=== PATIENT | female | born 1970 | race Caucasian/White ===

== ENCOUNTER 2020-07-24 08:36 | Outpatient (CLI) | payer OTHER, SELFPAY ==
--- NOTE | ~2020-07-24 | MM_ITS ---
EXAMINATION: MM screening nikolas BI w mary HISTORY: Screening mammogram TECHNIQUE: Craniocaudal and mediolateral oblique 3-D tomosynthesis images were obtained and synthetic 2-D images were generated. CAD analysis was submitted and interpreted. COMPARISON: No prior mammogram is available for comparison at this institution. BREAST PARENCHYMAL COMPOSITION: The breasts are heterogeneously dense, which may obscure small masses . FINDINGS: Bilateral microcalcifications are noted. Magnification views are required for more definiti ve evaluation. IMPRESSION: 1. Bilateral microcalcifications 2. Bilateral diagnostic mammography with magnification views is recommended. BI-RADS Category 0: Incomplete: Needs additional imaging evaluation. Reviewed, dictated and finalized at location A. HER ASSISTANT
== END 2020-07-24 08:37 | disposition home or self-care (01) ==
LOC: ANHIMG 08:45
PROVIDERS: PCP Internal Medicine
DX: Z12.31 Encounter for screening mammogram for malignant neoplasm of breast (principal); R92.8 Other abnormal and inconclusive findings on diagnostic imaging of breast
CPT/HCPCS: 77063; 77067

== ENCOUNTER 2020-08-21 13:43 | Outpatient (CLI) | payer OTHER, SELFPAY ==
--- NOTE | ~2020-08-21 | MM_ITS ---
EXAMINATION: MM diagnostic mammo BI HISTORY: Bilateral microcalcifications TECHNIQUE: Magnification views of both breasts were performed. Bilateral ML Tomosynthesis views and s ynthetic 2-D images were generated. CAD analysis was submitted and interpreted. COMPARISON: 07/24/2020 bilateral digital screening mammogram FINDINGS: Scattered bilateral benign predominantly punctate microcalcifications are noted. No maligna nt calcification is evident. IMPRESSION: 1. No mammographic evidence of malignancy 2. Routine annual mammographic screening is recommended. BI-RADS Category 2: Benign finding(s). Reviewed, dictated and finalized at location A. TOLOGY NURSE EDUCATOR
== END 2020-08-21 13:44 | disposition home or self-care (01) ==
PROVIDERS: PCP Internal Medicine
DX: R92.1 Mammographic calcification found on diagnostic imaging of breast (principal)
CPT/HCPCS: 77066

== ENCOUNTER 2021-09-11 08:02 | Outpatient (CLI) | payer OTHER, SELFPAY ==
--- NOTE | ~2021-09-11 | MM_ITS ---
EXAMINATION: MM screening nikolas BI w mary HISTORY: Screening TECHNIQUE: Craniocaudal and mediolateral oblique 3-D tomosynthesis images were obtained and synthetic 2-D images were generated. CAD analysis was submitted and interpreted. COMPARISON: No prior mammogram is available for comparison at this institution. BREAST PARENCHYMAL COMPOSITION: The breasts are heterogeneously dense, which may obscure small masses . FINDINGS: There is no evidence of suspicious mass, calcification, or architectural distortion to sugg est malignancy in either breast. There has been no suspicious interval change. IMPRESSION: 1. No mammographic evidence of malignancy. 2. Recommend routine screening mammography in one year. BI-RADS Category 1: Negative Reviewed, dictated and finalized at location A. STOCK NUTRITIONIST
== END 2021-09-11 08:03 | disposition home or self-care (01) ==
LOC: ANHIMG 08:04
PROVIDERS: PCP Internal Medicine; Visit Provider Obstetrics & Gynecology
DX: Z12.31 Encounter for screening mammogram for malignant neoplasm of breast (principal)
CPT/HCPCS: 77063; 77067

== ENCOUNTER 2022-10-30 16:16 | Outpatient (CLI) | payer BC, SELFPAY ==
--- NOTE | ~2022-10-30 | MM_ITS ---
EXAMINATION: MM screening nikolas BI w mary HISTORY: . TECHNIQUE: Craniocaudal and mediolateral oblique 3-D tomosynthesis images were obtained and synthetic 2-D images were generated. CAD analysis was submitted and interpreted. COMPARISON: No prior mammogram is available for comparison at this institution. BREAST PARENCHYMAL COMPOSITION: The breasts are heterogeneously dense, which may obscure small masses . FINDINGS: Stable fibroglandular asymmetry. There is no evidence of suspicious mass, calcification, or architectural distortion to suggest malignancy in either breast. There has been no suspicious interv al change. IMPRESSION: 1. Bilateral fibroglandular asymmetry and heterogeneously dense stroma No mammographic evidence of ma lignancy. 2. Recommend routine screening mammography in one year. BI-RADS Category 2: Benign finding(s). Reviewed, dictated and finalized at location A. DYNAMICS PROFESSOR IMPRESSION: 1. Bilateral fibroglandular asymmetry and heterogeneously dense stroma No mammo graphic evidence of malignancy. 2. Recommend routine screening mammography in one year. BI-RADS Category 2: Benign finding(s).
== END 2022-10-30 16:17 | disposition home or self-care (01) ==
LOC: ANHIMG 16:19
PROVIDERS: PCP Internal Medicine; Visit Provider Obstetrics & Gynecology
DX: Z12.31 Encounter for screening mammogram for malignant neoplasm of breast (principal)
CPT/HCPCS: 77063; 77067

== ENCOUNTER 2023-03-20 18:50 | Emergency (ER) | payer BC, SELFPAY ==
--- NOTE | 2023-03-20 18:51 | ED.EYEPROB ---
HPI - Eye Problem General Chief complaint: Eye Problems Stated complaint: Left Eye Irritation Time Seen by Provider: 03/20/23 18:51 Source: patient Mode of arrival: ambulatory Limitations: no limitations History of Present Illness HPI Narrative: Cyndee is a 52-year-old female patient presenting to clinic today with complaints of left eye irritation x2 days. She reports she thinks she got bit by an insect. Developed left upper eyelid swelling and now she has got redness and streaking around the eye. States that it is itchy and tender to palpation. Mild erythema, denies any fever or chills. History of penicillin allergies however she is able to take cefdinir/Keflex Related Data Home Medications Medication Instructions Recorded Confirmed atorvastatin 80 mg tablet mg 03/20/23 montelukast 10 mg tablet mg 03/20/23 progesterone micronized 100 mg mg 03/20/23 capsule venlafaxine 75 mg capsule,extended mg PO 03/20/23 release 24 hr Allergies Allergy/AdvReac Type Severity Reaction Status Date / Time amoxicillin Allergy Unknown Other Verified 03/20/23 18:53 codeine Allergy Unknown Other Verified 03/20/23 18:53 clavulanic acid Allergy Other Verified 03/20/23 19:05 [From Augmentin] Review of Systems Review of Systems: Pertinent positives per HPI. Patient denies any fever, chills, headache, visual changes, dizziness, cough, runny nose, sore throat, shortness of breath, chest pain, palpitations, nausea, vomiting, diarrhea, constipation, abdominal pain, or any urinary issues. [facility] Family History Family History Other Family history of malignant neoplasm of breast Social History Social History Smoking status: Never smoker Alcohol intake: current Comments At the time of my signature, I reviewed and agree with the nursing past medical, surgical, social, and family history. There is no relevant family history pertinent to the patient complaint. Exam Narrative: General: Well-developed, well nourished, in no apparent distress Head: Normocephalic, atraumatic Eyes: Pupils equally round and reactive to light bilaterally, EOM intact, sclera and conjunctive clear, no discharge, left upper eyelid swollen, red,itchy, with mild erythema and tenderness-redness streaking down the lateral left face Ears: TMs intact and clear, ear canals clear, no drainage, grossly hearing normal. Nose: Nares patent, no discharge, no inflammation, no sinus tenderness. Mouth: Oropharynx without lesions or masses, good dentition, MMM. Neck: Supple, trachea midline, no enlargement of anterior or posterior cervical nodes, no thyroid masses or goiter palpable. Cardio: Regular rate and rhythm, s1 and s2 normal, no murmur appreciated. Resp: Clear to auscultation bilaterally anteriorly and posteriorly, no rhonchi, rales, wheezing or rubs Course Course Emergency Course: Portions of this record may have been created with voice recognition software. Level of Care: Express Care Visit Vital Signs Vital signs: Vital signs reviewed MDM - Eye Problem MDM Narrative Medical decision making narrative: At the time of visit patient is resting comfortably on exam table. I suspect patient has an insect sting that is causing some periorbital cellulitis/your allergic reaction. Will send in prescription for prednisone and Keflex. Supportive measures were discussed with the patient she voiced understanding discharge instructions agrees to treatment plan. Differential Diagnosis Differential diagnosis: Likely corneal abrasion, conjunctivitis, acute iritis, periorbital cellulitis, corneal ulcer (Insect bite, allergic reaction) and ruptured globe Discharge Plan Discharge Clinical Impression: Allergic to insect bites and stings Insect bite Qualifiers: Encounter type: initial encounter Site of insect bite: head Site
[2023-03-20 19:03] VITALS: BP 120/74; PULSE 86; RESP 16; TEMP 37.1; O2SAT 100
== END 2023-03-20 19:12 | disposition home or self-care (01) ==
PROVIDERS: Emergency Provider Nurse Practitioner Family; PCP Internal Medicine
DX: S00.262A Insect bite (nonvenomous) of left eyelid and periocular area, initial encounter (principal); W57.XXXA Bitten or stung by nonvenomous insect and other nonvenomous arthropods, initial encounter; H05.012 Cellulitis of left orbit
CPT/HCPCS: 99213; G0463

== ENCOUNTER 2024-02-11 16:20 | Outpatient (CLI) | payer OTHER, SELFPAY ==
--- NOTE | ~2024-02-11 | MM_ITS ---
EXAMINATION: MM screening nikolas BI w mary HISTORY: Screening TECHNIQUE: Craniocaudal and mediolateral oblique 3-D tomosynthesis images were obtained and synthetic 2-D images were generated. CAD analysis was submitted and interpreted. COMPARISON: Comparison to multiple prior studies sequentially, with oldest reviewed study dated 09/2018. BREAST PARENCHYMAL COMPOSITION: The breasts are heterogeneously dense, which may obscure small masses . FINDINGS: There is a new focal asymmetry laterally in the left breast on CC view only. The right raúl st is stable without evidence for malignancy. IMPRESSION: 1. No focal left breast asymmetry laterally on CC view. 2. Additional mammographic views and possible breast ultrasound are recommended. BI-RADS Category 0: Incomplete: Needs additional imaging evaluation. Reviewed, dictated and finalized at location B. IMPRESSION: 1. No focal left breast asymmetry laterally on CC view. 2. Additional mammographic views and possible breast ultrasound are recommended . BI-RADS Category 0: Incomplete: Needs additional imaging evaluation.
== END 2024-02-11 16:21 | disposition home or self-care (01) ==
PROVIDERS: PCP Internal Medicine; Visit Provider Obstetrics & Gynecology
DX: Z12.31 Encounter for screening mammogram for malignant neoplasm of breast (principal); R92.8 Other abnormal and inconclusive findings on diagnostic imaging of breast
CPT/HCPCS: 77063; 77067

== ENCOUNTER 2024-03-03 10:42 | Outpatient (CLI) | payer OTHER, SELFPAY ==
--- NOTE | ~2024-03-03 | MM_ITS ---
EXAMINATION: MM diagnostic nikolas LT w mary HISTORY: Focal asymmetry left breast TECHNIQUE: Additional 3-D tomosynthesis spot compression images of the left breast were performed and synthetic 2-D images were generated. CAD analysis was submitted and interpreted. COMPARISON: 02/11/2024, 10/30/2022, 09/11/2021 BREAST PARENCHYMAL COMPOSITION:Dense: The breasts are heterogeneously dense, which may obscure small masses. FINDINGS: The focal asymmetry effaces with spot compression. No suspicious mass lesion or distortion seen. No suspicious microcalcification. IMPRESSION: No mammographic evidence for malignancy. BI-RADS Category 1: Negative Reviewed, dictated and finalized at location .
== END 2024-03-03 10:43 | disposition home or self-care (01) ==
LOC: ANHIMG 10:45
PROVIDERS: PCP Internal Medicine; Visit Provider Obstetrics & Gynecology
DX: R92.8 Other abnormal and inconclusive findings on diagnostic imaging of breast (principal)
CPT/HCPCS: 77061; 77065; G0279

== ENCOUNTER 2025-07-12 15:40 | Outpatient (CLI) | payer OTHER, SELFPAY ==
--- OUTSIDE RECORDS SUMMARY | 2024-02-14 15:30 | XMS_ITS ---
Author Organization [facility] [employer] [place] ([address]) Address [address] [place] [address] Care Team Providers Care Lockstitch Topstitcher Name Role Phone Nickie Rivas Primary Care Provider Unavaila Liliane Rosales Unavailable [phone] [employer], Provider Unavailable Unavailab le Allergies Allergen (clinical drug ingredient) Drug/Non Drug Allergy documented on EMR Reaction Allergy Type Onset Date Status BIAXIN (uncoded) diarrhea Allergy Act patricio amoxicillin / clavulanate Augmentin stomach upset Drug Allergy Active doxycycline Doxycycline rash Drug Allergy Act patricio Tussin Cough confussion Drug Allergy Act patricio codeine Codeine vomiting Drug Allergy Active REASON FOR VISIT [facility] To [facility] Conversion Encounter Medications Medication SIG (Take, Route, Frequency, Duration) Notes Start Date End Date Status Singulair 10 MG 1 tab(s) orally once a day (in the evening); Duration: 90 days Active Azelastine HCl 0.15 % 2 spray(s) intranasally 2 times a day; Duration: 90 days Active SIT (TRADITIONAL) VARIABLE PER SCHEDULE SC PER SCHEDULE; Duration: TO BE DETERMINED *Please review for potential replacement for e-prescription and drug interaction check* Active busPIRone HCl 7.5 MG 1 tab(s) orally 2 times a day; Duration: 30 day(s) 09/26/2021 Active Singulair 10 MG 1 tab(s) orally once a day (in the evening); Duration: 90 days Active NASAL WASHES N/A DIRECTED INTRANASALLY NEEDED *Please review for potential replacement for e-prescription and drug interaction check* Active ZyrTEC Allergy 10 MG 1 tab(s) orally once a day Active Lenore Allergy 180 MG 1 tab(s) orally once a day Active Estradiol 0.05 MG/24HR 1 PATCH applied topically 2 times a week; Duration: 30 day(s) Active Effexor XR 75 MG 1 cap(s) orally once a day; Duration: 30 day(s) 09/26/2021 Active busPIRone HCl 15 MG 1 tab(s) orally 2 times a day; Duration: 30 day(s) Active Effexor XR 75 MG 1 cap(s) orally once a day; Duration: 30 day(s) Active PROAIR HFA CFC FREE 90 MCG/INH 2 PUFF(S) INHALED 4 TIMES A DAY; Duration: 90 DAYS *Please review for potential replacement for e-prescription and drug interaction check* Active Symbicort 80-4.5 MCG/ACT 2 puff(s) inhaled 2 times a day; Duration: 30 day(s) Active EpiPen 2-Speedy 0.3 MG/0.3ML 0.3 mg intramuscularly once Active Pataday 0.2 % 1 gtt in each affect ed eye once a day; Duration: 90 days Active Atorvastatin Calcium 80 MG 1 tab(s) orally once a day; Duration: 30 day(s) Active Estradiol 0.05 MG/24 HOURS TWICE WEEKLY 1 PATCH TRANSDERMALLY 2 TIMES A WEEK; Duration: 30 DAY(S) *Please review and pick correct strength-formulat ion from NAVX options. If intended option is not shown, discontinue and re-order from Quick Search* Active Progesterone 100 MG 2 cap(s) orally once a day (at bedtime); Duration: 12 day(s) Active Encounters Encounter Location Date Provider Diagnosis [facility] Tafoya [address] [place] [id number] 02/14/2024 Provider Romie Mild persistent asthma, uncomplicated J45.30 ; Allergic rhinitis due to pollen J30.1 and Other chronic allergic conjunctivitis H10.45 Assessments Encounter Date Diagnosis (ICD Code) Assessment Notes Treatment Notes Treatment Clinical Notes Section Notes 02/14/2024 Mild persistent asthma, uncomplicated (ICD-10 - J45.30) 02/14/2024 Allergic rhinitis due to pollen (ICD-10 - J30.1) 02/14/2024 Other chronic allergic conjunctivitis (ICD-10 - H10.45) Plan Of Treatment Medication Medication Name Sig Start Date Stop Date Notes Singulair 10 MG 1 tab(s) orally once a day (in the evening); Duration: 90 days Azelastine HCl 0.15 % 2 spray(s) intranasally 2 times a day; Duration: 90 days SIT (TRADITIONAL) VARIABLE PER SCHEDULE SC PER SCHEDULE; Duration: TO BE DETERMINED *Please review for potential replacement for e-prescription and drug interaction check* NASAL WASHES N/A DIRECTED INTRANAS ALLY NEEDED *Please review for potential replacement for e-prescription and drug interaction check* Lenore Allergy 180 MG 1 tab(s) orally once a day PROAIR HFA CFC FREE 90 MCG/INH 2 PUFF(S) INHALED 4 TIMES A DAY; Duration: 90 DAYS *Please review for potential replacement for e-prescription and drug interaction check* Symbicort 80-4.5 MCG/ACT 2 puff(s) inhaled 2 times a day; Duration: 30 day(s) EpiPen 2-Speedy 0.3 MG/0.3ML 0.3 mg intramuscularly once Pataday 0.2 % 1 gtt in each affect ed eye once a day; Duration: 90 days Progress Notes * Cyndee NICE LDOB:[birth year] (55 yo F)Acc No.[id number]:02/14/2024 Patient: Cyndee LEE Provider: Janet Okeefe :1970 A ge:53 Y S ex:Female Date:02/14/2024 Address:[address] [place] [address] Pcp:Nickie Rivas Subjective: * Chief Complaints: * [facility] * Medical History: * Medications: T aking ZyrTEC Allergy 10 MG Tablet 1 tab(s) orally once a day , Taking Estradiol 0.05 MG/24HR Patch Twice Weekly 1 PATCH applied topically 2 times a week , Taking Effexor XR 75 MG Capsule Extended Release 24 Hour 1 cap(s) orally once a day , Taking busPIRone HCl 7.5 MG Tablet 1 tab(s) orally 2 times a day , Taking Singulair 10 MG Tablet 1 tab(s) orally once a day (in the evening) , Taking Atorvastatin Calcium 80 MG Tablet 1 tab(s) orally once a day , Taking Estradiol 0.05 MG/24 HOURS TWICE WEEKLY FILM, EXTENDED RELEASE 1 PATCH TRANSDERMALLY 2 TIMES A WEEK , Notes to Pharmacist: *Please review and pick correct strength-formulation from [employer]os[employer]pan options. If intended option is not shown, discontinue and re-order from Quick Search*, Taking Progesterone 100 MG Capsule 2 cap(s) orally once a day (at bedtime) , Taking busPIRone HCl 15 MG Tablet 1 tab(s) orally 2 times a day , Taking Effexor XR 75 MG Capsule Extended Release 24 Hour 1 cap(s) orally once a day * Allergies: A ugmentin: stomach upset, BIAXIN: diarrhea, Codeine: vomiting, Doxycycline: rash, Tussin Cough: confussion. Objective: * Vitals: Assessment: * Assessment: 1. M ild persistent asthma, uncomplicated - J45.30 2 . A llergic rhinitis due to pollen - J30.1 3 . O ther chronic allergic conjunctivitis - H10.45 ? Plan: * Treatment: 2. A llergic rhinitis due to pollen Continue EpiPen 2-Speedy Solution Auto-injector, 0.3 MG/0.3ML, 0.3 mg, intramuscularly, once; C ontinue NASAL WASHES 1 QUART OF STERILIZED TAP WATER OR DISTILLED WATER, 1 TSP NACL, 1 PINCH OF BAKING SODA, N/A, DIRECTED, INTRANASALLY, NEEDED, Notes to Pharmacist: *Please review for potential replacement for e-prescription and drug interaction check*; C ontinue Lenore Allergy Tablet, 180 MG, 1 tab(s), orally, once a day; C ontinue SIT (TRADITIONAL) SEE RECORD, VARIABLE, PER SCHEDULE, SC, PER SCHEDULE, TO BE DETERMINED, Notes to Pharmacist: *Please review for potential replacement for e-prescription and drug interaction check*; R efill Azelastine HCl Solution, 0.15 %, 2 spray(s), intranasally, 2 times a day, 90 days, 3, Refills 0. 3. O ther chronic allergic conjunctivitis Continue Pataday Solution, 0.2 %, 1 gtt, in each affected eye, once a day, 90 days, 3, Refills 0.? * Billing Information: * Visit Code: * Procedure Codes: * Electronic signature of Prov gaurangr ZZ-Migration on 07/12/2025 at 03:43 PM LAWNMOWER REPAIR MECHANIC Sign off status: Pending * Provider: Janet maki Migration Date: 0 02/14/2024 Generated for Karmen lowe/Robbi/Belleitting on: 1 09/11/2024 03:43 PM LAWNMOWER REPAIR MECHANIC
--- NOTE | ~2025-07-12 | MM_ITS ---
EXAMINATION: MM screening nikolas BI w mary HISTORY: Screening TECHNIQUE: Craniocaudal and mediolateral oblique 3-D tomosynthesis images were obtained and synthetic 2-D images were generated. CAD analysis was submitted and interpreted. COMPARISON: Comparison to multiple prior studies sequentially, with oldest reviewed study dated 07/24/2020. BREAST PARENCHYMAL COMPOSITION: Dense: The breasts are heterogeneously dense, which may obscure small masses FINDINGS: The right breast is stable without evidence for malignancy. There is a new mass centered in the upper outer quadrant of the left breast, anterior- middle depth, with peripheral calcification. IMPRESSION: 1. New left breast mass. 2. Additional mammographic views and possible breast ultrasound are recommended. BI-RADS Category 0: Incomplete: Needs additional imaging evaluation. Reviewed, dictated and finalized at location B. L [employer] IMPRESSION: 1. New left breast mass. 2. Additional mammographic views and possible breast ultrasound are recommended . BI-RADS Category 0: Incomplete: Needs additional imaging evaluation.
--- OUTSIDE RECORDS SUMMARY | 2025-07-12 15:43 | XMS_ITS | Patient Health Record ---
Author Organization [facility] [employer] [place] ([address]) Address [address] [place] [address] Care Team Providers Care Sagger Preparer Name Role Phone Nickie Rivas Primary Care Provider Liliane Ferro Unavailable [phone] Allergies Allergen (clinical drug ingredient) Drug/Non Drug Allergy documented on EMR Reaction Allergy Type Onset Date Status BIAXIN (uncoded) diarrhea Allergy Act patricio amoxicillin / clavulanate Augmentin stomach upset Drug Allergy Active doxycycline Doxycycline rash Drug Allergy Act patricio Tussin Cough confussion Drug Allergy Act patricio codeine Codeine vomiting Drug Allergy Active Reason For Referral No Information Medications Medication SIG (Take, Route, Frequency, Duration) Notes Start Date End Date Status ATORVASTATIN 80 mg 1 tab(s) orally once a day; Duration: 30 day(s) Active PROGESTERONE 100 mg 2 cap(s) orally once a day (at bedtime); Duration: 12 day(s) Active ESTRADIOL 0.05 mg/24 hours twice weekly 1 PATCH transdermally 2 times a week; Duration: 30 day(s) Active SINGULAIR 10 mg 1 tab(s) orally once a day (in the evening); Duration: 90 days Active EFFEXOR XR 75 mg 1 cap(s) orally once a day; Duration: 30 day(s) Active Singulair 10 MG 1 tab(s) orally once a day (in the evening); Duration: 90 days Active BUSPIRONE 15 mg 1 tab(s) orally 2 times a day; Duration: 30 day(s) Active ZyrTEC Allergy 10 MG 1 tab(s) orally once a day Active Estradiol 0.05 MG/24HR 1 PATCH applied topically 2 times a week; Duration: 30 day(s) Active Effexor XR 75 MG 1 cap(s) orally once a day; Duration: 30 day(s) 09/26/2021 Active EPIPEN 2-SPEEDY 0.3 mg 0.3 mg intramuscular ly once Active DILIA 24 HOUR ALLERGY 180 mg 1 tab(s) orally once a day Active PATADAY 0.2% 1 gtt in each affect ed eye once a day; Duration: 90 days Active BUSPIRONE 7.5 mg 1 tab(s) orally 2 times a day; Duration: 30 day(s) 09/26/2021 Active AZELASTINE NASAL 205.5 mcg/inh 2 spray(s) intranasally 2 times a day; Duration: 90 days Active ESTRADIOL PATCH 0.05 mg/24 hours twice weekly 1 PATCH applied topically 2 times a week; Duration: 30 day(s) Active EFFEXOR XR 75 mg 1 cap(s) orally once a day; Duration: 30 day(s) 09/26/2021 Active Azelastine HCl 0.15 % 2 spray(s) intranasally 2 times a day; Duration: 90 days Active busPIRone HCl 7.5 MG 1 tab(s) orally 2 times a day; Duration: 30 day(s) 09/26/2021 Active Atorvastatin Calcium 80 MG 1 tab(s) orally once a day; Duration: 30 day(s) Active Singulair 10 MG 1 tab(s) orally once a day (in the evening); Duration: 90 days Active Estradiol 0.05 MG/24 HOURS TWICE WEEKLY 1 PATCH TRANSDERMALLY 2 TIMES A WEEK; Duration: 30 DAY(S) *Please review and pick correct strength-formulat ion from [employer] options. If intended option is not shown, discontinue and re-order from Quick Search* Active Progesterone 100 MG 2 cap(s) orally once a day (at bedtime); Duration: 12 day(s) Active busPIRone HCl 15 MG 1 tab(s) orally 2 times a day; Duration: 30 day(s) Active Pataday 0.2 % 1 gtt in each affect ed eye once a day; Duration: 90 days Active Effexor XR 75 MG 1 cap(s) [...] 0.3 MG/0.3ML 0.3 mg intramuscularly once Active NASAL WASHES N/A DIRECTED INTRANASALLY NEEDED *Please review for potential replacement for e-prescription and drug interaction check* Active ZYRTEC 10 mg 1 tab(s) orally once a day Active SINGULAIR 10 mg 1 tab(s) orally once a day (in the evening); Duration: 90 days Active Dilia Allergy 180 MG 1 tab(s) orally once a day Active SYMBICORT 80 mcg-4.5 mcg/inh 2 puff(s) inhaled 2 times a day; Duration: 30 day(s) Active SIT (TRADITIONAL) VARIABLE PER SCHEDULE SC PER SCHEDULE; Duration: TO BE DETERMINED *Please review for potential replacement for e-prescription and drug interaction check* Active Immunizations Vaccine Route Administration Date Status Comme nts NOC Influenza-Fluzone Unknown 08/04/2019 Administered Fluzone Quadrivalent Unknown 07/14/2017 Administered Fluzone Quadrivalent Unknown 10/14/2017 Administered Influenza Unknown 05/16/2014 Administered Influenza Unknown 05/16/2015 Administered Influenza Unknown 06/21/2016 Administered NOC Fluzone Quadrivalent Unknown 07/08/2018 Refused Flucelvax Unknown 06/11/2019 Administered NOC Flucelevax Quadrivalent Unknown 06/05/2020 Administ ered Social History Tobacco Use: Social History Observation Description Date Details (start date - stop date) Never Smoker NA - NA Smoking Smart Form: Question Answer Notes Are you a: never smoker Problems Problem Type SNOMED Code ICD Code Onset Dates Problem Status W/U Status Risk Notes Problem Information temporarily unavailable Allergy status to other antibiotic agents status (Z88.1) Active confirmed Problem Information temporarily unavailable Other chronic allergic conjunctivitis (H10.45) Active confirmed Problem Information temporarily unavailable Acute sinusitis, unspecified (J01.90) Active confirmed Problem Information temporarily unavailable Acute upper respiratory infection, unspecified (J06.9) Active confirmed Problem Information temporarily unavailable Other allergic rhinitis (J30.89) Active confirmed Problem Information temporarily unavailable Mild persistent asthma, uncomplicated (J45.30) Active confirmed Problem Information temporarily unavailable Allergic rhinitis due to pollen (J30.1) Active confirmed Problem Information temporarily unavailable Allergic rhinitis due to animal (cat) (dog) hair and dander (J30.81) Active confirmed Problem Information temporarily unavailable Other allergic rhinitis (J30.89) Active confirmed Problem Information temporarily unavailable Other chronic allergic conjunctivitis (H10.45) Active confirmed Problem Information temporarily unavailable Acute sinusitis, unspecified (J01.90) Active confirmed Plan Of Treatment No Information Insurance Providers Payer Name Payer Address Payer Phone Subscriber Number Group Number Insured Name Patient Relationship to Insured Coverage Start Date Coverage End Date [facility] [address] [place] [address] [id number] Cyndee Inman Self - patient is the insured Medical (General) History Medical History History ICD Code Anemia NOS Hypoglycemia ASTHMA NOS Headache Mild persistent asthma, uncomplicated J4 5.30 Allergic rhinitis due to pollen J30.1 Allergic rhinitis due to animal (cat) (d og) hair and dander J30.81 Other allergic rhinitis J30.89 Other chronic allergic conjunctivitis H1 0.45 Surgical History Surgery Date(Month/Year) Sinus surgery 2009 [facility] age 14 Uterine procedure 12/2015 Hospitalization History Reason Date(Month/Year) Sinus surgery (1 day) 2009 [facility] (2 day) age 14 Fibroid Surgery 04/2018
--- OUTSIDE RECORDS SUMMARY | 2025-07-12 15:43 | XMS_ITS | Encounter Summary ---
Author Organization [facility] Healthcare Address [address] [place] [address] Care Team Providers Care Poll Clerk Name Role Phone Nickie Rivas MD Primary Care Provider Nickie Rivas MD Unavailable Encounter Details Date Type Department Care Team (Late st Contact Info) Description 07/07/2025 Results Follow-Up [facility] Primary Care [address] [place] [phone] Nickie Rivas MD [address] [place] [phone] CBC with auto differential, Comprehensive metabolic panel, Lipid panel, Additional followed-up results: 5 Social History Tobacco Use Types Packs/Day Years Used Date Smoking Tobacco: Never Smokeless Tobacco: Never Alcohol Use Standard Drinks/Week Comments Yes 0 (1 standard drink = 0.6 oz pur e alcohol) AUDIT-C Answer Date Recorded Q1: How often do you have a drink containing alc ohol? 2-4 times a month 11/24/2024 Q2: How many drinks containi ng alcohol do you have on a typical day when you are drinking? 1 or 2 11/24/2024 Q3: How often do you have si x or more drinks on one occasion? Never 11/24/2024 PHQ-2 Answer Date Recorded PHQ-2 Total Score (If total score is 3 or more points, staff should administer the PHQ-9) 0 03/01/2025 Personal Safety Answer Date Recorded Have you ever been in or are you currently in a harmful physical or emotional relationship or is someone making you feel afraid or unsafe? 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
--- OUTSIDE RECORDS SUMMARY | 2025-07-12 15:43 | XMS_ITS | Clinical Summary ---
Author Organization [facility] Address [address] [place] [address] Care Team Providers Care Import/Export Analyst Name Role Phone Unknown, Provider Primary Care Provider Nickie Maldonado MD Unavailable Source Comments [facility],non-owned Affiliates and Associated Physician Practices is amultiple site organization consisting of ambulatory clinics and hospital sitesin [place], [place], [place] and [place]. This disclosure is being madepursuant to the Care Everywhere program and may not contain all information available regarding this patient. Last updated 18.[facility] Allergies Active Allergy Reactions Criticality Noted Date Comments Augmentin Diarrhea 01/12/2021 Pt states she can take amoxicillin without diarrhea. Augmentin Diarrhea 10/08/2022 Codeine Vomiting 01/12/2021 Codeine Vomiting 10/08/2022 Doxycycline Rash Medium 10/08/2022 Medications * Be aware that medications may not be up to date on this document. Alwaysverify current medications with the patient. atorvastatin (LIPITOR) 10 MG tablet Take 10 mg by mouth at bedtime Active PARoxetine HCl (PAXIL PO) Active estradiol (VIVELLE-DOT) 0.05 MG/24HR patch Apply 1 Patch to skin every 3 days Active Montelukast Sodium (SINGULAIR PO) Activ e fluticasone furoate (FLONASE SENSIMIST/VERAM YST) 27.5 MCG/SPRAY nasal spray [place] 1 [place] into each nostril 2 times daily Active Ferrous Sulfate (IRON CR PO) Active Fexofenadine HCl (DILIA PO) Active olopatadine (PATADAY) 0.2 % ophthalmic solution 1 Drop once daily Active Ipratropium [place] (ATROVENT NA) Active progesterone 100 mg 100 mg tablet Take 100 mg by mouth at bedtime Active azelastine (ASTELIN) 0.1 % nasal spray [place] 1 spray into each nostril 2 times daily Active Cetirizine HCl (ZYRTEC PO) Active Fluticasone Propionate (FLONASE NA) Active Montelukast Sodium (SINGULAIR PO) Activ e Estradiol (ESTRADERM TD) Activ e budesonide-form oterol (Symbicort) 80-4.5 MCG/ACT inhaler Inhale 2 (two) puffs by mouth 2 times daily Active atorvastatin (Lipitor) 80 MG tablet Take 1 (one) tablet by mouth at bedtime Active busPIRone (Buspar) 15 MG tablet Take 1 (one) tablet by mouth 2 times daily Active Immunizations Immunization Administration Dates Next Due HEP A VACCINE, ADULT 04/12/2017 MMR 04/11/2020 TDAP (7yrs+) 04/29/2019 Family History Medical History Relation Name Comments Cancer - Skin, Non Melanoma Mother Hyperlipidemia Mother Thyroid Disease Mother Relation Name Status Comments Mother Social History Tobacco Use Types Packs/Day Years Used Date Smoking Tobacco: Never Smokeless Tobacco: Never Tobacco Cessation:Counseling Given: Not Answered Alcohol Use Standard Drinks/Week Comments Never 0 (1 standard drink = 0.6 oz pur e alcohol) PHQ-2 Answer Date Recorded PHQ2 TOTAL SCORE 0 10/08/2022 Comments No Sex and Gender Information Value Date Recorded Sex Assigned at Female 05/09/2025 11:14 AM CDT 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 Gender Identity Female 05/09/2025 11:14 AM CDT Sexual Orientation Straight 05/09/2025 11 :14 AM CDT Last Filed Vital Signs Vital Sign Reading Time Taken Comments Blood Pressure 106/74 10/08/2022 1:42 PM INSURANCE COUNSELOR Pulse 77 10/08/2022 1:42 PM INSURANCE COUNSELOR Temperature 36.6 C (97.9 F) 10/08/2022 1:42 PM INSURANCE COUNSELOR Respiratory Rate 16 01/12/2021 2:09 PM CDT Oxygen Saturation 99% 10/08/2022 1:42 PM INSURANCE COUNSELOR Inhaled Oxygen Concentration - - Weight 72.1 kg (159 lb) 10/08/2022 1:42 PM INSURANCE COUNSELOR Height 167.6 cm (5' 6) 01/12/2021 2:09 PM CDT Body Mass Index 25.66 01/12/2021 2:09 PM CDT Plan of Treatment Health Maintenance Due Date Last Done Comments COLOGUARD (AGES 45-75) - COLON CA SCREENING 1970 COLON MONITORING 1970 COLONOSCOPY - COLON CA SCREENING 1970 CT COLONOGRAPHY - COLON CA SCREENING 1970 Colorectal Cancer Screening 1970 FIT - COLON CA SCREENING 1970 FLEX SIG - COLON CA SCREENING 1970 MAMMOGRAM 1970 HIV SCREENING 1985 HEPATITIS C SCREENING 06/22/1988 HEPATITIS B VACCINE (1 of 3 - 19+ 3-dose series) 1989 PAP SMEAR 1991 HEPATITIS A VACCINE (2 of 2 - Risk 2-dose series) 10/13/2017 04/12/2017 PNEUMOCOCCAL VACCINE 50+ (1 of 1 - PCV) 2020 ZOSTER VACCINE (1 of 2) 2020 SCREENING FOR DIABETES 01/12/2021 DEPRESSION SCREENING 09/01/2024 10/08/2022 COVID-19 VACCINE (3 - season) 2025 07/06/2021, 06/11/2021 INFLUENZA VACCINE (#1) 2025 2, 06/11/2021, 06/05/2020, Additional history exists DTAP/TDAP/TD VACCINES (2 - Td or Tdap) 04/29/2029 04/29/2019 HIB VACCINE Aged Out No longer eligi ble based on patient's age to complete this topic HPV VACCINE Aged Out No longer eligi ble based on patient's age to complete this topic MENINGOCOCCAL (Group B) VACCINE SHARED DECISION-MAKING Aged Out No longer eligible based on patient's age to complete this topic MENINGOCOCCAL GROUPS A/C/Y/W VACCINE Aged Out No longer eligible based on patient's age to complete this topic Insurance [facility] Care Teams Import/Export Analyst Relationship Specialty Start Date End Date Unknown, Provider PCP - General 10/08/22 Nickie Rivas MD Internal Medicine 10/08/22
--- OUTSIDE RECORDS SUMMARY | 2025-07-12 15:43 | XMS_ITS | Clinical Summary ---
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 Codeine Vomiting Low 01/12/2021 Codeine Sulfate Unknown 12/31/2018 Doxycycline Unknown,Rash Medium 10/12/2018 Levofloxacin Anxiety Low 02/07/2022 Meloxicam Nausea only Low 02/07/2022 Medications azelastine 0.15 % (205.5 mcg) spray,non-aero heahter 0.15 % 2 (two) times a day Active estradiol (VIVELLE-DOT) 0.075 mg/24 hr VALERI 1 PATCH TWICE WEEKLY 11 9 Active Symbicort 80-4.5 mcg/actuation inhaler Inhale 2 puffs 2 (two) times a day as needed 1 Active cetirizine (ZyrTEC) 10 mg tablet Take 1 tablet (10 mg total) by mouth daily Active progesterone (PROMETRIUM) 100 mg capsule Take 1 capsule (100 mg total) by mouth daily 90 capsule 3 4 Active atorvastatin (LIPITOR) 80 mg tablet Take 1 tablet (80 mg total) by mouth daily 90 tablet 3 5 Active fluticasone propionate (FLONASE) 50 mcg/actuation nasal spray Administer 2 sprays into each nostril daily Active naproxen (NAPROSYN) 500 mg tablet Take 1 tablet (500 mg total) by mouth every 12 (twelve) hours as needed for pain (pain) 30 tablet 5 Active busPIRone (BUSPAR) 15 mg tablet Take 1 tablet (15 mg total) by mouth 2 (two) times a day 180 tablet 3 5 Active venlafaxine XR (EFFEXOR-XR) 75 mg 24 hr capsule Take 1 capsule (75 mg total) by mouth daily Take 1 tablet daily 90 capsule 3 5 Active venlafaxine XR (EFFEXOR-XR) 75 mg 24 hr capsule Take 1 capsule (75 mg total) by mouth daily Take 1 tablet daily 90 capsule 3 5 06/17/20 25 Discontinu ed(Reorder ) Active Problems Problem Noted Date Diagnosed Date Postmenopausal bleeding 11/24/2024 Neck pain 02/07/2022 Assessment & Plan (02/07/2022 1:44 PM CDT): Check xray today, continue aleve. I recommend ice 15 min 3x per day for the first 3-5 days then can use heat if needed. You can try a TENS unit or Physical Therapy. Overweight (BMI 25.0-29.9) 09/13/2021 Subclinical hyperthyroidism 12/11/2017 Generalized anxiety disorder 06/11/2017 Mixed hyperlipidemia 06/11/2017 Encounters Date Type Department Care Team Description 07/07/2025 Results Follow-Up [facility] Primary Care [address] [place] [phone] Nickie Rivas MD CBC with auto differential, Comprehensive metabolic panel, Lipid panel, Additional followed-up results: 5 06/01/2025 7:00 PM CDT Office Visit [facility] Care at [address] [phone] Jasmyne Caruso PA Chronic pansinusitis (Primary Dx) from Last 3 Months Immunizations Immunization Administration Dates Next Due DTP 12/05/1977, 2,1970,10/17,1970 Hep A, Adult 04/12/2017 Influenza, Quadrivalent, Twila l Culture-based MDCK, Antibiotic Free, Intramuscular 06/05/2020,06/11/2019 Influenza, Quadrivalent, Twila l Culture-based MDCK, Preservative Free, Antibiotic Free, Intramuscular 06/22/2022 Influenza, Quadrivalent, Spl it, Preservative Free, Intramuscular 05/22/2020,06/19/2017 Influenza, Trivalent, High D ose, Split, Preservative Free, Intramuscular 08/04/2019 Influenza, Trivalent, IM (MDV) ,10/14/2017,07/14/2017,06/21,05/16/2015,05/16/2014 Influenza, Trivalent, Preser vative Free, Intramuscular 05/29/2024,05/28/2016 Influenza, Unspecified 06/02/2023,2021,06/11/2021,05/22,06/11/2019 MMR 04/11/2020,11/26/1990,08/04/1971 OPV 12/05/1977, 2,1970,10/17,1970 Pfizer SARS-CoV-2 Monovalent Vaccination (12+ Yrs) PURPLE 07/06/2021,06/11/2021 Td, adsorbed 11/26/1990,04/13/1981 Tdap 04/29/2019 ZOSTER Recombinant 11/23/2022,06/22/2022 Surgical History Surgery Date Site/Laterality Comments TONSILLECTOMY SINUS SURGERY UTERINE FIBROID EMBOLIZATION DILATION AND CURETTAGE OF UTERUS Medical History Medical History Date Comments Hyperlipidemia Anemia Hyperthyroidism Fatty liver Motion sickness Asthma Environmental allergies Hypotension per pt Uterus didelphus Anxiety Family History Medical History Relation Name Comments ADD / ADHD Brother 1 Anxiety disorder Brother 1 ADD / ADHD Brother 2 Anxiety disorder Brother 2 Anxiety disorder Father Clayton Diabetes Father Clayton Hyperlipidemia Father Clayton Obesity Father Clayton Skin cancer Father Clayton Heart attack Maternal Grandfather Lacho Heart disease Maternal Grandfather Lacho Allergy (severe) Maternal Grandmother Bee Alzheimer's disease Maternal Grandmother Bee Miscarriages / Stillbirths Maternal Grandmother Bee Allergy (severe) Mother Mayda Anemia Mother Mayda Cancer Mother Mayda Colon cancer Mother Mayda ADD / ADHD Sister Anxiety disorder Sister Relation Name Status Comments Brother 1 Alive Brother 2 Alive Father Clayton Alive Maternal Grandfather Lacho Maternal Grandmother Bee Mother Mayda Alive Sister Alive Social History Tobacco Use Types Packs/Day Years Used Date Smoking Tobacco: Never Smokeless Tobacco: Never Tobacco Cessation:Counseling Given: Not Answered Alcohol Use Standard Drinks/Week Comments Yes 0 [...] on file Legal Sex Female 12:56 AM SETTLEMENT PROCESSOR Gender Identity Female 01/03/2021 1:29 PM CDT Sexual Orientation Straight 01/03/2021 1: 29 PM CDT Last Filed Vital Signs Vital Sign Reading Time Taken Comments Blood Pressure 107/71 06/01/2025 7:07 PM CDT Pulse 82 06/01/2025 7:07 PM CDT Temperature 36.6 C (97.9 F) 06/01/2025 7:07 PM CDT Respiratory Rate 18 06/01/2025 7:07 PM CDT Oxygen Saturation 98% 06/01/2025 7:07 PM CDT Inhaled Oxygen Concentration - - Weight 67.1 kg (148 lb) 06/01/2025 7:07 PM CDT Height 167.6 cm (5' 6) 03/01/2025 4:10 PM CDT Body Mass Index 23.89 03/01/2025 4:10 PM CDT Plan of Treatment Health Maintenance Due Date Last Done Comments Cervical Cancer Screening 02/02/2023 02/02/2018 Breast Cancer Screening-Mammogram 03/03/2024 03/03/2023, 09/11/2021, 07/24/2020, Additional history exists Colon Cancer Screening-DNA Stool 03/07/2025 03/07/2022 Covid-19 Vaccine ( season) 2025 07/06/2021, 06/11/2021 Influenza Vaccine (#1) 2025 , 06/02/2023, 06/22/2022, Additional history exists Depression Screening 03/01/2026 03/01/2025, 02/26/2024, 11/17/2023, Additional history exists Regular Well Visit/Exam 18-64 03/01/2026 03/01/2025, 02/26/2024, 02/24/2023, Additional history exists DTaP/Tdap/Td Vaccine (7 - Td or Tdap) 04/29/2029 04/29/2019, 11/26/1990, 04/13/1981, Additional history exists Zoster Vaccine Completed 11/23/2022, 06/22/2022 Hepatitis B Screening Completed 07/06/2025 Hepatitis C Screening Completed 07/06/2025 Pneumococcal vaccine <65 Aged Out No longer eligible based on patient's age to complete this topic Procedures Procedure Name Priority Date/Time Associated Diagnosis Comments HEMOGLOBIN A1C Routine 07/06/2025 9:43 AM SETTLEMENT PROCESSOR Abnormal blood sugar LIPID PANEL Routine 07/06/2025 9:43 AM SETTLEMENT PROCESSOR Routine general medical examination at a health care facility COMPREHENSIVE METABOLIC PANEL Routine 07/06/2025 9:43 AM SETTLEMENT PROCESSOR Routine general medical examination at a health care facility CBC WITH AUTO DIFFERENTIAL Routine 07/06/2025 9:43 AM SETTLEMENT PROCESSOR Routine general medical examination at a health care facility HEPATITIS C ANTIBODY Routine 07/06/2025 9:43 AM SETTLEMENT PROCESSOR Need for hepatitis C screening test HEPATITIS B SURFACE ANTIGEN Routine 07/06/2025 9:41 AM SETTLEMENT PROCESSOR Need for hepatitis B screening test HEPATITIS B SURFACE ANTIBODY (IMMUNE STATUS) Routine 07/06/2025 9:41 AM SETTLEMENT PROCESSOR Need for hepatitis B screening test HEPATITIS B CORE ANTIBODY, TOTAL Routine 07/06/2025 9:41 AM SETTLEMENT PROCESSOR Need for hepatitis B screening test STOOL DNA COLOGUARD Routine 03/07/2022 3:00 PM CDT Screening for colon cancer SCREENING MAMMOGRAM Schedule Routine, Read Routine (OP Routine) 09/11/2021 HM PAP SMEAR WITH HPV Routine 02/02/2018 from Last 3 Months or Most Recently Relevant to Health Maintenance Results * (ABNORMAL) CBC with auto differential (07/06/2025 9:43 AM SETTLEMENT PROCESSOR) WBC 7.5 3.8 - 10.8 Thousand/u L [facility] RBC, POC 4.87 3.80 - 5.10 Million/uL [facility] Hgb 14.9 11.7 - 15.5 g/dL [facility] Hct 45.1(H) 35.0 - 45.0 % [facility] MCV 92.6 80.0 - 100.0 fL [facility] MCH 30.6 27.0 - 33.0 pg [facility] MCHC 33.0 32.0 - 36.0 g/dL [facility] Comment: For adults, a slight decrease in the calculated MCHC value (in the range of 30 to 32 g/dL) is most likely not clinically significant; however, it should be interpreted with caution in correlation with other red cell parameters and the patient's clinical condition. Rdw 12.4 11.0 - 15.0 % [facility] Platelets 324 140 - 400 Thousand/u L [facility] MPV 9.5 7.5 - 12.5 fL [facility] Neutrophils, abs 4,433 1,500 - 7,800 cells/uL [facility] Lymphocytes, abs 2,378 850 - 3,900 cells/uL [facility] Monocyte abs 548 200 - 950 cells/uL [facility] Eosinophils, abs 90 15 - 500 cells/uL [facility] Basophils, abs 53 0 - 200 cells/uL [facility] Neutrophils 59.1 % [facility] Lymphocyte pct 31.7 % [facility] Monocytes 7.3 % [facility] Eosinophils 1.2 % [facility] Basophils 0.7 % [facility] Blood 07/06/2025 9:43 AM SETTLEMENT PROCESSOR 07/06/2025 9:44 AM SETTLEMENT PROCESSOR Narrative [facility] - 07/07/2025 3:14 AM SETTLEMENT PROCESSOR FASTING:YES FASTING: YES Nickie Rivas MD LAB BLOOD ORD ERABLES Final Result Performing Organization Address City/[facility] Co de Phone Number [facility] [address] [place] [address] * Hepatitis C antibody Blood (07/06/2025 9:43 AM SETTLEMENT PROCESSOR) Hep C Ab NON-REACTI VE NON-REACT KEVIN [facility] Comment: HCV antibody was non-reactive. There is no laboratory evidence of HCV infection. In most cases, no further action is required. However, if recent HCV exposure is suspected, a test for HCV RNA (test code 31213) is suggested. For additional information please refer to http://education.[employer].Ne[employer]/faq/KKF61l1 (This link is being provided for informational/ educational purposes only.) Blood 07/06/2025 9:43 AM SETTLEMENT PROCESSOR 07/06/2025 9:44 AM SETTLEMENT PROCESSOR Narrative [facility] - 07/07/2025 3:14 AM SETTLEMENT PROCESSOR FASTING:YES FASTING: YES Nickie Rivas MD LAB M ICROBIOLOGY - GENERAL ORDERABLES Final Result Performing Organization Address City/[facility]/ZIP Co de Phone Number [facility] [address] [place] [address] * (ABNORMAL) Hemoglobin A1c (07/06/2025 9:43 AM SETTLEMENT PROCESSOR) Pathologist [facility] Hgb A1C 5.7(H) <5.7 % of total Hgb [facility] Comment: For someone without known diabetes, a hemoglobin A1c value between 5.7% and 6.4% is consistent with prediabetes and should be confirmed with a follow-up test. For someone with known diabetes, a value <7% indicates that their diabetes is well controlled. A1c targets should be individualized based on duration of diabetes, age, comorbid conditions, and other considerations. This assay result is consistent with an increased risk of diabetes. Currently, no consensus exists regarding use of hemoglobin A1c for diagnosis of diabetes for children. Blood 07/06/2025 9:43 AM SETTLEMENT PROCESSOR 07/06/2025 9:44 AM SETTLEMENT PROCESSOR Narrative [facility] - 07/07/2025 3:14 AM SETTLEMENT PROCESSOR FASTING:YES FASTING: YES Nickie Rivas MD LAB BLOOD ORD ERABLES Final Result [facility] [address] [place] [address] * (ABNORMAL) Lipid panel (07/06/2025 9:43 AM SETTLEMENT PROCESSOR) [facility] Cholesterol 229(H) <200 mg/dL [employer] [facility] HDL 58 > OR = 50 mg/dL [employer] [facility] Triglycerides 94 <150 mg/dL [facility] LDL 151(H) mg/dL (calc) [facility] [employer] [facility] Comment: Reference range: <100 Desirable range <100 mg/dL for primary prevention; <70 mg/dL for patients with CHD or diabetic patients with > or = 2 CHD risk factors. LDL-C is now calculated using the Norman-Yanick calculation, which is a validated novel method providing better accuracy than the Friedewald equation in the estimation of LDL-C. Norman MONTIEL et al. BRUNA. 2013;310(19): 9667-2049 (http://education.[employer]/faq/KTA796) Chol/HDL ratio 3.9 <5.0 (calc) [facility] Non-HDL, (LDL+VLDL) 171(H) <130 mg/dL (calc) [facility] Comment: For patients with diabetes plus 1 major ASCVD risk factor, treating to a non-HDL-C goal of <100 mg/dL (LDL-C of <70 mg/dL) is considered a therapeutic option. Blood 07/06/2025 9:43 AM SETTLEMENT PROCESSOR 07/06/2025 9:44 AM SETTLEMENT PROCESSOR Narrative [facility] - 07/07/2025 3:14 AM SETTLEMENT PROCESSOR FASTING:YES FASTING: YES us Nickie Rivas MD LAB BLOOD ORD ERABLES Final Result SHARRI [facility] [address] [place] [address] * (ABNORMAL) Comprehensive metabolic panel (07/06/2025 9:43 AM SETTLEMENT PROCESSOR) Pathologist [facility] Glucose 93 65 - 99 mg/dL [facility] [employer] [facility] [place] Comment: Fasting reference interval BUN 10 7 - 25 mg/dL [facility] Creatinine 0.65 0.50 - 1.03 mg/dL [employer] [facility] eGFR 104 > OR = 60 mL/min/1.7 3m2 [employer] [facility] BUN/creat ratio SEE NOTE: (calc) [facility] [employer] [facility] [place] Comment: Not Reported: BUN and Creatinine are within reference range. Sodium 139 135 - 146 mmol/L [employer] [facility] Potassium, pl 4.2 3.5 - 5.3 mmol/L [employer] [facility] Chloride 105 98 - 110 mmol/L [employer] [facility] CO2 25 20 - 32 mmol/L [employer] [facility] Calcium 9.7 8.6 - 10.4 mg/dL [employer] [facility] [place] Protein, sr 6.7 6.1 - 8.1 g/dL [employer] [facility] Albumin 4.4 3.6 - 5.1 g/dL [employer] [facility] GLOBULIN 2.3 1.9 - 3.7 g/dL (calc) [facility] Alb/glob ratio 1.9 1.0 - 2.5 (calc) [facility] Bilirubin, total 0.6 0.2 - 1.2 mg/dL [facility] Alk phos 135 37 - 153 U/L [facility] AST 27 10 - 35 U/L [facility] ALT (SGPT) 32(H) 6 - 29 U/L [facility] Blood 07/06/2025 9:43 AM SETTLEMENT PROCESSOR 07/06/2025 9:44 AM SETTLEMENT PROCESSOR Narrative [facility] - 07/07/2025 3:14 AM SETTLEMENT PROCESSOR FASTING:YES FASTING: YES us Nickie Rivas MD LAB BLOOD ORD ERABLES Final Result [facility] [address] [place] [address] * Hepatitis B core antibody, total Blood (07/06/2025 9:41 AM SETTLEMENT PROCESSOR) Hep B core IgG/IgM NON-REACTI VE NON-REACTI VE [facility] Comment: For additional information, please refer to http://education.Mek[employer]/faq/KSZ198 (This link is being provided for informational/ educational purposes only.) Blood 07/06/2025 9:41 AM SETTLEMENT PROCESSOR 07/06/2025 9:42 AM SETTLEMENT PROCESSOR Narrative [facility] - 07/07/2025 5:11 AM SETTLEMENT PROCESSOR FASTING:YES FASTING: YES us Nickie Rivas MD LAB M ICROBIOLOGY - GENERAL ORDERABLES Final Result [facility] [address] [place] [address] * Hepatitis B surface antibody (immune status) Blood (07/06/2025 9:41 AM SETTLEMENT PROCESSOR) HBsAb (immune status) NON-REACTI VE NON-REACTI VE [facility] Blood 07/06/2025 9:41 AM SETTLEMENT PROCESSOR 07/06/2025 9:42 AM SETTLEMENT PROCESSOR Narrative [facility] - 07/07/2025 5:11 AM SETTLEMENT PROCESSOR FASTING:YES FASTING: YES Nickie Rivas MD LAB [facility] - GENERAL ORDERABLES Final Result Performing Organization Address [facility] de Phone Number SHARRI [facility] [address] [place] [address] * Hepatitis B Surface Antigen Blood (07/06/2025 9:41 AM SETTLEMENT PROCESSOR) [facility] HepBsAg NON-REACTI VE NON-REACTI VE [facility] Comment: For additional information, please refer to http://education.Mekitec/faq/AQE796 (This link is being provided for informational/ educational purposes only.) Blood 07/06/2025 9:41 AM SETTLEMENT PROCESSOR 07/06/2025 9:42 AM SETTLEMENT PROCESSOR Narrative [facility] - 07/07/2025 5:11 AM SETTLEMENT PROCESSOR FASTING:YES FASTING: YES Nickie Rivas MD LAB [facility] GENERAL ORDERABLES Final Result Performing Organization Address [facility] de Phone Number [facility] [address] [place] [address] * Stool DNA - Cologuard (03/07/2022 3:00 PM CDT) [facility] Stool DNA - Cologuard Negative Negative [employer] (CLIA #:[id number]) Comment: NEGATIVE TEST RESULT. A negative Cologuard result indicates a low likelihood that a colorectal cancer (CRC) or advanced adenoma (adenomatous polyps with more advanced pre-malignant features) is present. The chance that a person with a negative Cologuard test has a colorectal cancer is less than 1 in 1500 (negative predictive value >99.9%) or has an advanced adenoma is less than 5.3% (negative predictive value 94.7%). These data are based on a prospective cross-sectional study of 10,000 individuals at average risk for colorectal cancer who were screened with both Cologuard and colonoscopy. (Karie Moore, N Engl J Med 2014;370(14):1520-5170) The normal value (reference range) for this assay is negative. COLOGUARD RE-SCREENING RECOMMENDATION: Periodic colorectal cancer screening is an important part of preventive healthcare for asymptomatic individuals at average risk for colorectal cancer. Following a negative Cologuard result, the [place] [employer] Society and U.S. Multi-Society Task Force screening guidelines recommend a Cologuard re-screening interval of 3 years. References: [place] [employer] Guideline for Colorectal Cancer Screening: https://www.cancer.org/cancer/mjmxj-rwgmmz-dqnxop/iilxychos-tqorzgdna-lfcvnvs/ac s-rec ommendations.html.; Prem DK, Harinder SHAH, Anila StevensK, Colorectal Cancer Screening: Recommendations for Physicians and Patients from the U.S. Multi-Society Task Force on Colorectal Cancer Screening , Am J Gastroenterology 2017; 112:3416-4004. TEST DESCRIPTION: Composite algorithmic analysis of stool DNA-biomarkers with hemoglobin immunoassay. Quantitative values of individual biomarkers are not reportable and are not associated with individual biomarker result reference ranges. Cologuard is intended for colorectal cancer screening of adults of either sex, 45 years or older, who are at average-risk for colorectal cancer (CRC). Cologuard has been approved for use by the U.S. FDA. The performance of Cologuard was established in a cross sectional study of average-risk adults aged 50-84. Cologuard performance in patients ages 45 to 49 years was estimated by sub-group analysis of near-age groups. Colonoscopies performed for a positive result may find as the most clinically significant lesion: colorectal cancer [4.0%], advanced adenoma (including sessile serrated polyps greater than or equal to 1cm diameter) [20%] or non- advanced adenoma [31%]; or no colorectal neoplasia [45%]. These estimates are derived from a prospective cross-sectional screening study of 10,000 individuals at average risk for colorectal cancer who were screened with both Cologuard and colonoscopy. (Karie Moore, N Engl J Med 2014;370(14):0451-9047.) Cologuard may produce a false negative or false positive result (no colorectal cancer or precancerous polyp present at colonoscopy follow up). A negative Cologuard test result does not guarantee the absence of CRC or advanced adenoma (pre-cancer). The current Cologuard screening interval is every 3 years. ([place] [employer] Society and U.S. Multi-Society Task Force). Cologuard performance data in a 10,000 patient pivotal study using colonoscopy as the reference method can be accessed at the following location: www.[employer].com/results. Additional description of the Cologuard test process, warnings and precautions can be found at www.cologuard.com. Stool 03/07/2022 3:00 PM CDT 03/08/2022 3:55 PM CDT Arabella Bryant NP LAB BODY FLUIDS AND STOOLS ORDERABLES Final Result [employer] (CLIA #:[id number]) [place] [address] * Screening Mammogram (09/11/2021) Anatomical Region Laterality Modality Breast N/A Mammography 09/11/2021 Historical Provider IMG MAMMO PROCEDURES Michela l Result * HM PAP SMEAR WITH HPV (02/02/2018) HM Pap smear Normal Historical Provider HEALTH MAINTENANCE Final Result from Last 3 Months or Most Recently Relevant to Health Maintenance Insurance [facility] [employer] [facility] HMO Care Teams Open Hearth Furnace Laborer Relationship Specialty Start Date End Date Nickie Rivas MD PCP - General 07/24/20 Nickie Rivas MD Internal Medicine 07/24/20
--- OUTSIDE RECORDS SUMMARY | 2025-07-12 15:44 | XMS_ITS | Encounter Summary ---
Author Organization [facility] Address [address] [place] [address] Care Team Providers Care Crm Analyst Name Role Phone Nickie Rivas MD Primary Care Provider [phone] Encounter Details Date Type Department Care Team (Late st Contact Info) Description 04/07/2018 Pre-Procedure Call [facility] [address] [place], [place] [address] Elida Mcrae MD [address] [place] [phone] Social History Tobacco Use Types Packs/Day Years Used Date Smoking Tobacco: Never Smokeless Tobacco: Never Alcohol Use Standard Drinks/Week Comments No 0 (1 standard drink = 0.6 oz pur e alcohol) Comments No Sex and Gender Information Value Date Recorded Sex Assigned at Not on file Legal Sex Female 8:17 PM CDT Gender Identity Not on file Sexual Orientation Not on file documented as of this encounter Last Filed Vital Signs Vital Sign Reading Time Taken Comments Blood Pressure - - Pulse - - Temperature - - Respiratory Rate - - Oxygen Saturation - - Inhaled Oxygen Concentration - - Weight 68 kg (150 lb) 04/07/2018 12:00 AM CDT Height 167.6 cm (5' 6) 04/07/2018 12:00 AM CDT Body Mass Index 24.21 04/07/2018 12:00 AM CDT documented in this encounter Plan of Treatment Not on file documented as of this encounter Visit Diagnoses Not on filedocumented in this encounter Care Teams Crm Analyst Relationship Specialty Start Date End Date Nickie Rivas MD PCP - General INTERNAL MEDICINE 04/20/18 documented as of this encounter
--- OUTSIDE RECORDS SUMMARY | 2025-07-12 15:44 | XMS_ITS | Encounter Summary ---
Author Organization [facility] Care Team Providers Care Tank Truck Engine Mechanic Name Role Phone Nickie Rivas MD Primary Care Provider Nickie Rivas MD Primary Care Provider Nickie Rivas MD Unavailable Encounter Details Date Type Department Care Team (Latest Contact Info) Description 11/07/2017 Orders Only [facility] ProviderAlisson MD [address] [place] [id number] Social History Tobacco Use Types Packs/Day Years Used Date Smoking Tobacco: Never Assessed Comments Unknown Sex and Gender Information Value Date Recorded Sex Assigned at Not on file Legal Sex Female 12:56 AM SENIOR OUTSIDE SALES REPRESENTATIVE Gender Identity Female 01/03/2021 1:29 PM CDT Sexual Orientation Straight 01/03/2021 1: 29 PM CDT documented as of this encounter Plan of Treatment Not on file documented as of this encounter Procedures Procedure Name Priority Date/Time Associated Diagnosis Comments SCAN - LABS 11/07/2017 12:00 AM SENIOR OUTSIDE SALES REPRESENTATIVE documented in this encounter Results * SCAN - LABS (11/07/2017 12:00 AM SENIOR OUTSIDE SALES REPRESENTATIVE) Narrative 11/07/2017 12:00 AM SENIOR OUTSIDE SALES REPRESENTATIVE Ordered by an unspecified provider. us Historical Provider Final Res ult documented in this encounter Visit Diagnoses Not on filedocumented in this encounter Additional Health Concerns Infection Onset Date Last Indicated Resolved Time COVID: Suspected 07/15/2022 07/15/2022 07/15/2022 4:00 PM SENIOR OUTSIDE SALES REPRESENTATIVE COVID: Suspected 11/17/2023 11/17/2023 11/17/2023 12:20 PM CDT COVID19 11/17/2023 11/17/2023 11/27/2023 3:05 AM CDT COVID: Recovered Comment:Added based on recent COVID infection. 11/27/2023 02/13/2024 02/25/2024 3:05 AM C DT COVID: Suspected 10/18/2024 10/18/2024 10/18/2024 1:02 PM SENIOR OUTSIDE SALES REPRESENTATIVE Influenza, adult 10/18/2024 10/18/2024 10/25/2024 3:07 AM SENIOR OUTSIDE SALES REPRESENTATIVE documented as of this encounter Care Teams Tank Truck Engine Mechanic Relationship Specialty Start Date End Date Nickie Rivas MD PCP - General Internal Medicine 12/04/18 07/23/20 Nickie Rivas MD PCP - General 07/24/20 Nickie Rivas MD Internal Medicine 07/24/20 documented as of this encounter
--- OUTSIDE RECORDS SUMMARY | 2025-07-12 15:44 | XMS_ITS | Clinical Summary ---
Author Organization [facility] Address [address] [place] [address] Care Team Providers Care Gasoline Attendant Name Role Phone Nickie Rivas MD Primary Care Provider [phone] Allergies Active Allergy Reactions Criticality Noted Date Comments Amoxicillin-Pot Clavulanate Diarrhea 04/07/20 18 Codeine Vomiting High 04/07/2018 Doxycycline Rash Low 04/07/2018 Hydrocod Faid-Chlorphe Fadi Er Other (see comment) 04/07/2018 confusion Medications atorvastatin 10 MG tablet Take 40 mg by mouth daily. Active estradiol 0.075 MG/24HR APPLY 1 NEW PATCH TO LOWER ABDOMEN 2 TIMES PER WEEK 0 01/08/2018 Active fexofenadine 60 MG tablet Active fluticasone furoate 27.5 MCG/SPRAY Suspension 1 spray by Nasal route. Active montelukast 10 MG tablet Take 10 mg by mouth. Active olopatadine 0.2 % Solution 1 drop. Active progesterone 100 MG capsule Take 100 mg by mouth daily. 02/02/2018 Active fluticasone propionate 50 MCG/ACT nasal spray 1 spray by Nasal route daily. Active multivitamin tablet Take 1 tablet by mouth daily. Active Probiotic Product (PROBIOTIC ADVANCED) Cap Active Ginkgo 60 MG Tab Take 2 tablets by mouth 2 (two) times daily. Active Azelastine HCl 0.15 % Solution U 2 SPRAYS IEN BID 1 02/18/2018 Active paroxetine 20 MG tablet TK 1 T PO QD IN THE MORNING 3 04/07/2018 Active Active Problems Problem Noted Date Diagnosed Date Intramural leiomyoma of uterus 04/20/2018 Resolved Problems Problem Noted Date Diagnosed Date Resolved Date Pelvic pain 04/21/2018 04/21/2018 Status post embolization of uterine artery 04/21/2018 04/21/2018 Social History Tobacco Use Types Packs/Day Years Used Date Smoking Tobacco: Never Smokeless Tobacco: Never Alcohol Use Standard Drinks/Week Comments No 0 (1 standard drink = 0.6 oz pur e alcohol) Comments No Sex and Gender Information Value Date Recorded Sex Assigned at Not on file Legal Sex Female 8:17 PM CDT Gender Identity Not on file Sexual Orientation Not on file Last Filed Vital Signs Vital Sign Reading Time Taken Comments Blood Pressure 109/60 04/21/2018 5:04 PM CDT Pulse 70 04/21/2018 5:04 PM CDT Temperature 36.7 C (98 F) 04/21/2018 5:04 PM CDT Respiratory Rate 16 04/21/2018 5:04 PM CDT Oxygen Saturation 99% 04/21/2018 5:0 4 PM CDT Inhaled Oxygen Concentration - - Weight 87.5 kg (192 lb 14.4 oz) 04/21/2018 4:00 AM CDT double check the weight on bed and its accurate Height 167.6 cm (5' 6) 04/20/2018 9:56 AM CDT Body Mass Index 31.14 04/20/2018 9:56 AM CDT Plan of Treatment Health Maintenance Due Date Last Done Comments Cervical Cancer Screening Pa p Smear (Age 30 to 64) Every 3 Years 1970 Colorectal Cancer Screening Colonoscopy (10 Years) 1970 Annual Physical 1973 Hepatitis C 1988 DTaP, Tdap and Td Vaccines ( 1 - Tdap) 1989 Hepatitis B Vaccines (1 of 3 - 19+ 3-dose series) 1989 Cervical Cancer Screening Pa p with HPV Testing (Age 30 to 64) Every 5 Years 2000 Cervical Cancer Screening with HPV 2000 Mammogram Screening 2010 Pneumococcal Vaccine: 50+ Ye ars (1 of 1 - PCV) 2020 Zoster Vaccines (1 of 2) 2020 COVID-19 Vaccine (1 - 2024-2 6 season) 2025 Influenza Adult (#1) 2025 Hepatitis A Vaccines Aged Out 04/12/2017 No long er eligible based on patient's age to complete this topic Meningococcal B Vaccine Aged Out No l onger eligible based on patient's age to complete this topic Meningococcal Vaccine Aged Out No montse zenaida eligible based on patient's age to complete this topic RSV Immunizations Under 20 Months Aged Out No longer eligible based on patient's age to complete this topic 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
--- OUTSIDE RECORDS SUMMARY | 2025-07-12 15:44 | XMS_ITS | Data Portability ---
Author Organization [employer] , [facility] Address [address] [place] [address] Assessment No assessment recorded. Plan of Treatment Reminders Order Date Submit Date Provider Last Modified By Organization Details Last Modified Time Details Appointments None recorded. Lab HPV E6+E7 mRNA, qualitative PCR, cervix 2024 025 [facility], [address] [place], [address], 5 16:30:51 pap, LB 2024 025 [facility], [address] [place], [address], 5 11:23:33 pap, LB 2024 025 [facility], [address] [place], [address], 5 11:23:28 HPV E6+E7 mRNA, qualitative PCR, cervix 2024 025 [facility], [address] [place], [address], 5 16:30:53 Referral None recorded. Procedures None recorded. Surgeries None recorded. Imaging US, transvagina l 2024 025 [facility], [address] [place], [address], 5 20:33:40 MAMMO, screening, digital, bilateral 2022 024 [facility], [address] [place], [address], 4 18:58:50 US, pelvis, transabdomi nal + transvagina l 2021 022 [email or web address] Not available 2 15:05:28 MAMMO, screening, digital, bilateral 2021 022 [facility], [address] [place], [address], 2 10:02:49 Medication Orders estradiol 0.075 mg/24 hr semiweekly transdermal patch 2024 025 [id number], [address], [place], [place], [id number], 5 10:14:19 progesteron e micronized 100 mg capsule 2024 025 [facility], [address], [place], [place], [id number], 5 10:14:19 estradiol 0.075 mg/24 hr semiweekly transdermal patch 2022 023 [facility], [address], [place], [place], [id number], 3 14:56:15 progesteron e micronized 100 mg capsule 2022 023 [facility], [address], [place], [place], [id number], 3 14:56:14 estradiol 0.075 mg/24 hr semiweekly transdermal patch 2021 022 [facility], [address] , [place], [place], [id number], 10:49:04 progesteron e micronized 100 mg capsule 2021 022 [facility], [address] [facility], [place], [place], [id number], 10:49:09 Patient TargetsNo targets recorded. Patient Instructions Encounter Date Encounter Id Patient Instructions Last Modified By Organization Details Last Modified Time 07/02/2022 [id number] A healthy lifestyle: care instructions Not available 07/02/2022 15:35:14 substance use disorder: care instructions Not available 07/02/2022 15:35:14 calcium and vitamin D combination Not available 07/02/2022 15:35:14 depression (wome n only) Not available 07/02/2022 15:35:14 eating healthy foods: care instructions Not available 07/02/2022 15:35:14 exercise program : getting started Not available 07/02/2022 15:35:15 08/21/2023 [id number] A healthy lifestyle: care instructions Not available 08/21/2023 14:56:07 substance use disorder: care instructions Not available 08/21/2023 14:56:07 calcium and vitamin D combination Not available 08/21/2023 14:56:07 depression (wome n only) Not available 08/21/2023 14:56:08 eating healthy foods: care instructions Not available 08/21/2023 14:56:08 exercise program : getting started Not available 08/21/2023 14:56:07 09/23/2024 [id number] A healthy lifestyle: care instructions Not available 09/23/2024 15:40:07 substance use disorder: care instructions Not available 09/23/2024 15:40:07 calcium and vitamin D combination Not available 09/23/2024 15:40:07 depression (wome n only) Not available 09/23/2024 15:40:07 eating healthy foods: care instructions Not available 09/23/2024 15:40:07 exercise program : getting started Not available 09/23/2024 15:40:07 Reason for Referral None Reported. Results Created Date Observation Date Name Description Value Unit Range Abnormal Flag Note LastModifiedBy Organization Detail LastModifiedTime 07/06/20 21 07/11/2021 T4, FREE T4, free 1.6 NG/dL 0.8-1. 8 normal Not Available [facility] [address] [place], [address], 07/11/2021 08:51:33 07/06/2007/11/2021 ESTRA DIOL estradiol 15 pg/mL normal Refer ence Range Folli cular Phase : 19-14 4 Mid-C ycle: 64-35 7 Lutea l Phase : 56-21 4 Postm enopa usal: < or = 31 Refer ence range estab lishe d on post- puber demond patie nt popul ation . No pre-p ubert al refer ence range estab lishe d using this assay . For any patie nts for whom low Estra diol level s are antic ipate d (e.g. males , pre-p ubert al child shira and hypog onada l/pos t-men opaus al femal es), the [facility] Estra diol, Ultra sensi tive, LCMSM S assay is recom deyanira d (orde r code 61034 ). Plegalen e note: patie nts being treat ed with the drug fulve stran t (Fasl odex( R)) have demon strat ed signi fican t inter feren ce in immun oassa y metho ds for estra diol measu remen t. The cross react ivity could lead to false ly eleva blanquita estra diol test resul ts leadi ng to an inapp ropri ate clini mishel asses sment of estro gen statu s. [facility] order code 71976 -Estr adiol , Ultra sensi tive LC/MS /MS demon strat es negli gible cross react ivity with fulve stran t. Not Available [facility] [address] [address] [address] , [place], [address], 07/11/2021 08:51:34 07/06/2007/11/2021 T3, FREE T3, free 3.8 pg/mL 2.3-4. 2 normal Not Available [facility] [address] [address] , [place], [address], 07/11/2021 08:51:35 07/06/20 21 07/11/2021 TESTO STERO NE, FREE (DIAL YSIS) AND TOTAL ,MS testosterone , total, MS 12 NG/dL 2-45 For addit ional infor polo maxwell refer to https ://ed ucati on.import2. [employer]/f aq/FA Q165 (This link is being provi ded for infor jennifer nal/e ducat ional purpo ses only. ) (Note ) This test was devel oped and its mali tical perfo rmanc e karrie cteri stics have been deter mined by [employer]. It has not been clear ed or appro valente by the FDA. This assay has been valid ated pursu ant to the CLIA regul ation s and is used for clini mishel purpo ses. Not Available [facility] [address] [address] [address] , [place], [address], 07/11/2021 08:51:35 07/06/2007/11/2021 TESTO STERO NE, FREE (DIAL YSIS) AND TOTAL ,MS testosterone , free 2 pg/mL 0.1-6. 4 (Note ) This test was devel oped and its mali tical perfo rmanc e karrie cteri stics have been deter mined by [employer]. It has not been clear ed or appro valente by the FDA. This assay has been valid ated pursu ant to the CLIA regul ation s and is used for clini mishel purpo ses. NORRIS med fusio n [address] [facility] [address] [facility] [address] [phone] Sorin davenport MD Not Available [facility] [address] [place], [address], 07/11/2021 08:51:35 09/23/19 25 09/24/2024 HPV HIGH RISK HPV high risk Negati ve negati ve normal The HPV High Risk assay is inten ded for use as co-te sting with cytol ogy and not as a subst itute for regul ar cervi mishel cytol ogy scree kun. This assay is not inten ded for use as a scree kun devic e for women under age 30 with eris l cervi mishel cytol ogy. Not Available [address], [address], 09/24/2024 16:30:51 09/23/19 25 09/24/2024 HPV HIGH RISK HPV high risk Negati ve negati ve normal The HPV High Risk assay is inten ded for use as co-te sting with cytol ogy and not as a subst itute for regul ar cervi mishel cytol ogy scree kun. This assay is not inten ded for use as a scree kun devic e for women under age 30 with eris l cervi mishel cytol ogy. Not Available [address], [address], 09/24/2024 16:30:52 09/23/19 25 09/28/2024 THINP REP TIS PAP clinical information: normal None given Not Available [facility] [address] [address] [place], [address], 09/28/2024 11:23:28 09/23/19 25 09/28/2024 THINP REP TIS PAP LMP: normal NONE GIVEN Not Available [facility] [address] [place], [address], 09/28/2024 11:23:28 09/23/19 25 09/28/2024 THINP REP TIS PAP prev. Pap: normal NONE GIVEN Not Available [facility] [address] [address] [place], [address], 09/28/2024 11:23:28 09/23/19 25 09/28/2024 THINP REP TIS PAP prev. BX: normal NONE GIVEN Not Available [address], [address], 09/28/2024 11:23:28 09/23/19 25 09/28/2024 THINP REP TIS PAP source: normal Left Cervi x Not Available [address] [place], [address], 09/28/2024 11:23:28 09/23/19 25 09/28/2024 THINP REP TIS PAP statement of adequacy: normal Satis facto ry for evalu ation . Endoc ervic al/tr ansfo rmati on zone compo nent prese nt. Age and/o r menst rual statu s not provi ded Not Available [address], [address], 09/28/2024 11:23:28 09/23/19 25 09/28/2024 THINP REP TIS PAP interpretati on/result: normal Cytol ogy Resul ts: Negat patricio for intra epith elial lesio n or lolita benson . Not Available [address] [address] [place], [address], 09/28/2024 11:23:28 09/23/19 25 09/28/2024 THINP REP TIS PAP comment: normal This Pap test has been evalu ated with compu ter naomi blanquita techn ology . Not Available [address], [address], 09/28/2024 11:23:28 09/23/19 25 09/28/2024 THINP REP TIS PAP cytotechnolo gist: normal PCM, CT( CP) CT Scree kun Locat ion: [address] [address] [place] [address] Not Available [address] [address] [place], [address], 09/28/2024 11:23:28 09/23/19 25 09/28/2024 THINP REP TIS PAP comment EXPLA YAJAIRA Solorzano NOTE: The Pap is a scree kun test for cervi mishel cance r. It is not a diagn ostic test and is subje ct to false negat patricio and false posit patricio resul ts. It is most relia ble when a satis facto ry sampl e, regul jennifer obtai pippa, is submi tted with relev ant clini mishel findi ngs and histo ry, and when the Pap resul t is evalu ated along with histo wendi and curre nt clini mishel infor matio n. Not Available [address] [place], [address], 09/28/2024 11:23:28 09/23/19 25 09/28/2024 THINP REP TIS PAP clinical information: normal None given Not Available [address] [place], [address], 09/28/2024 11:23:33 09/23/19 25 09/28/2024 THINP REP TIS PAP LMP: normal NONE GIVEN Not Available [address] [place], [address], 09/28/2024 11:23:33 09/23/19 25 09/28/2024 THINP REP TIS PAP prev. Pap: normal NONE GIVEN Not Available [address] [place], [address], 09/28/2024 11:23:33 09/23/19 25 09/28/2024 THINP REP TIS PAP prev. BX: normal NONE GIVEN Not Available [address] [address] [place], [address], 09/28/2024 11:23:33 09/23/19 25 09/28/2024 THINP REP TIS PAP source: normal Right Cervi x Not Available [address] [address] [place], [address], 09/28/2024 11:23:33 09/23/19 25 09/28/2024 THINP REP TIS PAP statement of adequacy: normal Satis facto ry for evalu ation . Endoc ervic al/tr ansfo rmati on zone compo nent prese nt. Age and/o r menst rual statu s not provi ded Not Available [address] [address] [place], [address], 09/28/2024 11:23:33 09/23/19 25 09/28/2024 THINP REP TIS PAP interpretati on/result: normal Cytol ogy Resul ts: Negat patricio for intra epith elial lesio n or malig marcelino . Not Available [address] [address] [place], [address], 09/28/2024 11:23:33 09/23/19 25 09/28/2024 THINP REP TIS PAP comment: normal This Pap test has been evalu ated with compu ter naomi blanquita techn ology . Not Available [address] [address] [place], [address], 09/28/2024 11:23:33 09/23/19 25 09/28/2024 THINP REP TIS PAP cytotechnolo gist: normal PCM, CT( CP) CT Scree kun Locat ion: [place] [address] [address] [place] [address] Not Available [address] [address] [place], [address], 09/28/2024 11:23:33 09/23/19 25 09/28/2024 THINP REP TIS PAP comment EXPLA NATOR Y NOTE: The Pap is a scree kun test for cervi mishel cance r. It is not a diagn ostic test and is subje ct to false negat patricio and false posit patricio resul ts. It is most relia ble when a satis facto ry sampl e, regul jennifer obtai pippa, is submi tted with relev ant clini mishel findi ngs and histo ry, and when the Pap resul t is evalu ated along with histo wendi and curre nt clini mishel infor matio n. Not Available [facility] [address] [address], [place], [address], 09/28/2024 11:23:33 07/04/20 22 07/02/2022 US, pelvi s, trans abdom inal + trans vagin al No observ ation record ed. [facility] [address], [place], [address], 07/04/2022 11:26:57 11/01/19 23 10/30/2022 MAMMO , scree kun, digit al, bilat eral No observ ation record ed. [email or web address] [address], [place], [address], 10/31/2022 14:04:51 02/12/20 24 02/11/2024 MAMMO , scree kun, digit al, bilat eral No observ ation record ed. [email or web address] [address] [address], [place], [address], 02/13/2024 15:56:32 03/03/20 24 03/03/2024 MAMMO , diagn ostic , digit al, unila teral No observ ation record ed. [address] [address] [address], [place], [address], 03/03/2024 14:32:50 09/23/19 25 09/23/2024 US, trans vagin al No observ ation record ed. [email or web address] [address], [place], [address], 09/23/2024 20:33:40 Result Notes None recorded. Problems Name Problem SNOMED Code Status Onset Date Resolution Date Notes Provider Name and Address Organization Details Recorded Time Menometr orrhagia 510708072 Completed 201205/29/2014 Menometr orrhagia ; Location : None Progress : Stable Added By: Carmita Crespo Add to Current Problems : NO ProblemS tatus: Resolve Not Available [facility] 2 11:49:46 Family planning surveill ance Completed 201310/29/2014 Contrace ptive maintena nce; Location : None Progress : Stable Added By: Janell Morrell Add to Current Problems : YES ProblemS tatus: Resolve Not Available [facility] 2 11:49:43 Mammogra phy abnormal [id number] Completed 201401/17/2016 Abnormal mammogra m, unspecif ied; Location : None Progress : Stable Added By: Jeanmarie Lester Add to Current Problems : NO ProblemS tatus: Resolve Not Available [facility] 2 11:49:44 Congenit al uterine anomaly [id number] Completed 201501/17/2016 Other anomalie s of uterus; Severity : Moderate Progress : Stable Added By: Dominga Alonzo Add to Current Problems : NO ProblemS tatus: Resolve Other congenit al malforma tions of uterus; Severity : Moderate Progress : Stable Added By: Dominga Alonzo Add to Current Problems : NO ProblemS tatus: Resolve Not Available [facility] 1 19:06:48 Uses contrace ption [id number] Completed 201511/28/2015 Contrace ptive maintena nce; Location : None Severity : Moderate Progress : Stable Added By: Janell Morrell Add to Current Problems : YES ProblemS tatus: Resolve Contrace ptive maintena nce; Severity : Moderate Progress : Stable Added By: Janell Morrell Add to Current Problems : NO ProblemS tatus: Resolve; Start Date : 08/30/20 14 Not Available [facility] 01:23:02 Uses combined oral contrace ption 056771578 Completed 201511/28/2015 Contrace ptive maintena nce; Location : None Progress : Stable Added By: Janell Morrell Add to Current Problems : YES ProblemS tatus: Resolve Encounte r for surveill ance of contrace ptive pills; Progress : Stable Added By: Janell Morrell Add to Current Problems : NO ProblemS tatus: Resolve Not Available [facility] 2 11:49:42 Congenit al uterine anomaly [id number] Completed 201501/17/2016 Other anomalie s of uterus; Location : None Progress : Stable Added By: Dominga Alonzo Add to Current Problems : YES ProblemS tatus: Resolve Other congenit al malforma tions of uterus; Progress : Stable Added By: Dominga Alonzo Add to Current Problems : NO ProblemS tatus: Resolve; Start Date : 09/29/19 Other anomalie s of uterus; Location : None Progress : Stable Added By: Janell Morrell Add to Current Problems : YES ProblemS tatus: Resolve; Start Date : 09/29/19 16 Not Available [facility] 2 11:49:41 Hypoglyc emia 554181340 Completed 201501/17/2016 Hypoglyc emia, unspecif ied; Progress : Stable Added By: Cyndie De Leon Add to Current Problems : NO ProblemS tatus: Resolve Hypoglyc emia; Location : None Progress : Stable Added By: Cyndie De Leon Add to Current Problems : YES ProblemS tatus: Resolve Not Available [facility] 2 11:49:45 Pure hypercho lesterol emia 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 Completed 201507/12/2021 Pure hypercho lesterol emia; Severity : Moderate Progress : Stable Added By: Janell Morrell Add to Current Problems : YES ProblemS tatus: Current Janell Morrell MD [address] [facility], [place], [address] , [facility] 1 16:45:34 Hyperlip idemia 00395438 Completed 201501/29/2019 Hyperlip idemia; Progress : Stable Added By: Janell Morrell Add to Current Problems : NO ProblemS tatus: Resolve Hyperlip idemia; Location : None Progress : Stable Added By: Janell Morrell Add to Current Problems : YES ProblemS tatus: Current Not Available [facility] 2 11:49:43 Generali zed anxiety disorder 03479071 Completed 201501/17/2016 Generali zed anxiety disorder ; Location : None Progress : Stable Added By: Janell Morrell Add to Current Problems : YES ProblemS tatus: Current; Start Date : 08/30/20 14 Gener alized anxiety disorder ; Progress : Stable Added By: Janell Morrell Add to Current Problems : NO ProblemS tatus: Resolve; Start Date : 08/30/20 14 Anxie ty; Progress : Stable Added By: Janell Morrell Add to Current Problems : NO ProblemS tatus: Resolve; Start Date : 08/27/20 13 Anxie ty; Location : None Progress : Stable Added By: Janell Morrell Add to Current Problems : YES ProblemS tatus: Resolve Anxiety; Location : None Progress : Stable Added By: Janell Morrell Add to Current Problems : YES ProblemS tatus: Resolve; Start Date : 09/29/19 16 Gener alized anxiety disorder ; Progress : Stable Added By: Lashay Paige Add to Current Problems : YES ProblemS tatus: Current; Start Date : 08/30/20 14 Not Available [facility] 2 11:49:43 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 Completed 201501/17/2016 Longitud inal vaginal septum; Progress : Stable Added By: Cyndie De Leon Add to Current Problems : NO ProblemS tatus: Resolve Not Available [facility] 2 11:49:46 Leukorrh ea 119142866 Completed 201502/08/2016 Vaginal Discharg e; Progress : Stable Added By: Janell Morrell Add to Current Problems : NO ProblemS tatus: Resolve Not Available [facility] 2 11:49:[address] Concept Completed 201510/18/2016 Encounte r for follow-u p examinat ion after complete d treatmen t for conditio ns other than malignan t neoplasm ; Progress : Stable Added By: Cyndie De Leon Add to Current Problems : NO ProblemS tatus: Resolve Not Available [facility] 2 11:49:41 Surgical follow-u p - normal [id number] Completed 201510/18/2016 Follow-u p exam followin g surgery; Severity : Moderate Progress : Stable Added By: Cyndie De Leon Add to Current Problems : NO ProblemS tatus: Resolve Not Available [facility] 1 19:06:49 Noninfla mmatory disorder of the vagina 61086038 Completed 201502/08/2016 Noninfla mmatory disorder of vagina, unspecif ied; Progress : Stable Added By: Janell Morrell Add to Current Problems : NO ProblemS tatus: Resolve Not Available [facility] 2 11:49:42 Doubling of uterus Completed 201501/29/2019 Didelphi c uterus; Progress : Stable Added By: Janell Morrell Add to Current Problems : NO ProblemS tatus: Resolve Not Available [facility] 2 11:49:44 Postmeno pausal bleeding 10349837 Completed 201707/09/2018 Janell Morerll MD [address] [place] [address], [address] , [employer] [facility] 2 10:47:55 Endocrin e/metabo lic screenin g Completed 201712/06/2017 Encounte r for screenin g for other suspecte d endocrin e disorder ; Progress : Stable Added By: Janell Morrell Add to Current Problems : NO ProblemS tatus: Resolve Screenin g for thyroid disorder ; Location : None Progress : Stable Added By: Janell Morrell Add to Current Problems : YES ProblemS tatus: Resolve Not Available [facility] 2 11:49:42 Postmeno pausal bleeding 51480429 Active 2017 Janell Morrell MD [address] [place] [address], [address] , [facility] 2 10:47:55 Menopaus e present 790462781 Completed 201703/24/2018 Menopaus al Symp; Location : None Severity : Moderate Progress : Stable Added By: Janell Morrell Add to Current Problems : YES ProblemS tatus: Resolve Menopaus e; Location : None Severity : Moderate Progress : Stable Added By: Janell Morrell Add to Current Problems : YES ProblemS tatus: Resolve; Start Date : 01/07/20 17 Menop ausal and female climacte wendi states; Severity : Moderate Progress : Stable Added By: Janell Morrell Add to Current Problems : YES ProblemS tatus: Current; Start Date : 09/29/19 16 Janell Morrell MD [address] [place] [address], [address] , [employer] [facility] 2 19:27:15 Congenit al duplicat ion of uterus 53086521 Completed 201707/12/2021 Janell Morrell MD [address] [place] [address], [phone] , [facility] 5 10:14:07 Breast neoplasm screenin g NOS Completed 201703/24/2018 Screenin g mammogra m - other; Location : None Severity : Moderate Progress : Stable Added By: Rosalee Diego Add to Current Problems : YES ProblemS tatus: Resolve Screenin g mammogra m - other; Severity : Moderate Progress : Stable Added By: Barbara Monk Add to Current Problems : NO ProblemS tatus: Resolve; Start Date : 08/30/20 14 Not Available [facility] 1 19:06:51 Congenit al duplicat ion of uterus 02809230 Active 2017 Janell Morrell MD [address] [place] [address], [address] , [employer] [facility] 5 10:14:07 Increase d frequenc y of urinatio n 342132961 Completed 201701/29/2019 Urinary frequenc y; Progress : Stable Added By: Cyndie De Leon Add to Current Problems : NO ProblemS tatus: Resolve Frequenc y of micturit ion; Progress : Stable Added By: Cyndie De Leon Add to Current Problems : NO ProblemS tatus: Resolve Urinary frequenc y; Location : None Progress : Stable Added By: De Leon , Cyndie Add to Current Problems : YES ProblemS tatus: Current Not Available [facility] 2 11:49:44 Uterine leiomyom a 24565399 Completed 201707/25/2018 Uterine fibroids ; Location : None Severity : Moderate Progress : Stable Added By: Janell Morrell Add to Current Problems : YES ProblemS tatus: Resolve Leiomyom a of uterus, unspecif ied; Severity : Moderate Progress : Stable Added By: Janell Morrell Add to Current Problems : YES ProblemS tatus: Current; Start Date : 02/08/20 16 Janell Morrell MD [address] [place] [address], [address] , [employer] [facility] 2 19:27:32 Uterine leiomyom a 45917806 Active 2018 Janell Morrell MD [address] [place] [address], [address] , [employer] [facility] 2 19:27:32 Sampling of vagina for Papanico laou smear Completed 201807/12/2021 Encounte r for gynecolo gical examinat ion (general ) (routine ) without abnormal findings ; Severity : Moderate Progress : Stable Added By: Janell Morrell Add to Current Problems : YES ProblemS tatus: Current Janell Morrell MD [address] [place] [address], [address] , [facility] 1 16:45:36 Menopaus e present 259749106 Active 2018 Janell Morrell MD [address] [place] [address], [address] , [employer] [facility] 2 19:27:15 Breast composit ion 351614933 Completed 201807/12/2021 Inconclu sive mammogra m; Severity : Moderate Progress : Stable Added By: Bindu Clay Add to Current Problems : YES ProblemS tatus: Current Janell Morrell MD [address] [place] [address], [phone] , [employer] [facility] 1 16:45:24 Anxiety disorder 484524141 Active 2021 Janell Morrell MD [address] [place], [address] , [facility] [employer] 2 17:37:17 Menopaus al symptom 33519638 Active 2024 Janell Morrell MD [address] [place] [address], [address] , [facility] 5 10:14:11 Problem Notes None recorded. Procedures Surgical History Date Name Laterality Status Provider Name and Address Organization Details Recorded Time 11/26/19 25 [facility] 12/09/2024 11:41:36 09/23/19 25 Date of Last Pap Smear completed GABRIEL CARMICHAEL [address] [place] [address], [phone], [facility] [employer] IV 09/28/2024 12:45:11 03/03/20 24 Most Recent Mammogram completed Janell Morrell MD [address] [place] [address], [phone], [facility] [employer] [facility] IV 03/03/2024 14:32:30 03/07/20 22 completed Janell Morrell MD [address] [place] [address], [phone], [facility] [employer] [facility] IV 07/01/2022 19:30:18 Removal of tonsils completed Lashay Paige [facility] [employer] IV 07/12/2021 09:28:08 Imaging Results None recorded. Procedure Notes None recorded. Medical Equipment None Reported. Allergies Allergen ID Allergen Name Allergen Category Reaction Reaction Severity Criticality Documentation Date Start Date Code Code System Note Provider Name and Address Organization Details Recorded Time 482028 codeine sulfate medicatio n Not available Not available Not available 06/22/20212012 23929 RxNorm Dorothy winkler, [place] [facility] IV 5 13:11:35 884422 Augmentin medicatio n Not available Not available Not available 06/22/20212012 66121 2 RxNorm Dorothy winkler, [facility] IV 5 13:11:35 406381 house dust allergeni c extract environme nt,medica tion Not available Not available Not available 09/23/2024 93292 9 RxNorm Dorothy winkler, [facility] IV 5 13:11:35 391974 cat dander environme nt Not available Not available Not available 09/23/2024 Dorothy winkler, [facility] IV 5 13:11:35 723574 mold extract environme nt Not available Not available Not available 09/23/2024 79544 8 RxNorm Dorothy winkler, [facility] IV 5 13:11:35 525143 cigarette smoke environme nt Not available Not available Not available 09/23/2024 Dorotyh winkler, [facility] IV 5 13:11:35 627361 amoxicill in / clavulana te medicatio n diarrhea Not available Not available 07/11/20252017 60150 RxNorm Not Available [employer] - [employer] - prod 5 15:45:50 094121 codeine medicatio n vomiting Not available high 07/11/20252017 2670 RxNorm Not Available [employer] - External Data [employer] - prod 5 15:45:50 303239 doxycycli ne Not available rash Not available low 07/11/20252017 3640 RxNorm Not Available [employer] - External Data [employer] - prod 5 15:45:50 886597 chlorphen iramine / hydrocodo ne medicatio n other Not available Not available 07/11/20252017 83612 2 RxNorm confu bairon Not Available [employer] - External Data [employer] - prod 5 15:45:50 915824 levofloxa gertrude medicatio n anxiety Not available low 07/11/20252021 28331 RxNorm Not Available [employer] - External Data [employer] - prod 5 15:47:26 336558 meloxicam medicatio n nausea Not available low 07/11/20252021 89001 RxNorm Not Available [facility] - External Data Service - prod 15:47:26 Medications Name Sig Start Date Stop Date Status Note LastModified by Organization Details LastModified Time atorvasta tin 80 mg tablet TAKE 1 TABLET BY MOUTH EVERY DAY active Not Available Not Available No t Available venlafaxi ne ER 75 mg capsule,e xtended release 24 hr TAKE ONE CAPSULE BY MOUTH DAILY active Not Available Not Available No t Available atorvasta tin 20 mg tablet Take 1 tablet(s ) by mouth daily 07/02 completed Atorvast atin Calcium 20mg Tablet RxNorm: 934605 Allow Substitu tion: True Refill Denied: No Edited by: zaki(Janell Garcia) on 02/11/20 20 Stopped by: zaki(Janell Garcia) on For Problem: Hyperlip idemia Not Available Not Available Not Available citalopra m 40 mg tablet 10/02 completed Citalopr am Hydrobro mide 20mg Tablet RxNorm: 761318 Allow Substitu tion: True Refill Denied: No Not Available Not Available Not Available estradiol 0.075 mg/24 hr semiweekl y transderm al patch APPLY 1 PATCH TO THE SKIN ON LOWER ABDOMEN TWICE WEEKLY active Not Available Not Available No t Available atorvasta tin 10 mg tablet Take 1 tablet(s ) by mouth daily 02/07 completed Atorvast atin Calcium 10mg Tablet RxNorm: 953281 Allow Substitu tion: True Refill Denied: No For Problem: Hyperlip idemia Not Available Not Available Not Available CombiPatc h 0.05 mg-0.14 mg/24 hr transderm al Apply 1 patch(es ) to lower abdomen 2 times weekly 04/26 completed Combipat ch 0.05mg/0 .14mg Transder mal Patch RxNorm: 4939404 Allow Substitu tion: True Refill Denied: No For Problem: Menopaus e Not Available Not Available Not Available fluconazo le 150 mg tablet take 1 tablet (150 mg) by oral route once 07/02 completed Not Available Not Available Not Available meloxicam 15 mg tablet 12/09 completed Not Available Not Available Not Available Paxil 20 mg tablet Take 1 tablet(s ) by mouth daily 02/10 completed Paxil 40mg Tablet RxNorm: 195060 Allow Substitu tion: True Refill Denied: No Not Available Not Available Not Available prednison e 20 mg tablet TAKE 2 TABLETS BY MOUTH DAILY FOR 5 DAYS 08/21 completed Not Available Not Available Not Available venlafaxi ne ER 150 mg capsule,e xtended release 24 hr TAKE 1 CAPSULE BY MOUTH EVERY DAY 07/02 completed Not Available Not Available Not Available Paxil 40 mg tablet Take 1 tablet(s ) by mouth daily 12/03 completed PaxiL 40 mg oral tablet RxNorm: 296879 Allow Substitu tion: True Refill Denied: No Edited by: Janell Novak) on 02/11/20 20 Stopped by: Janell Novak) on Not Available Not Available Not Available amoxicill in 875 mg tablet TAKE 1 TABLET BY MOUTH TWICE DAILY FOR 10 DAYS 07/12 completed Not Available Not Available Not Available citalopra m 20 mg tablet 10/02 completed Citalopr am Hydrobro mide 20mg Tablet RxNorm: 730433 Allow Substitu tion: True Refill Denied: No Not Available Not Available Not Available Flagyl 500 mg tablet 1 PO BID x 7 days 02/07 completed Flagyl 500mg Tablet RxNorm: 328429 Allow Substitu tion: True Refill Denied: No For Problem: Vaginal Discharg e Not Available Not Available Not Available cephalexi n 500 mg capsule TAKE 1 CAPSULE BY MOUTH THREE TIMES DAILY FOR 10 DAYS. 12/09 completed Not Available Not Available Not Available cephalexi n 500 mg tablet 07/02 completed Not Available Not Available Not Available monteluka st 10 mg tablet TAKE 1 TABLET BY MOUTH EVERY DAY IN THE EVENING 09/23 completed Not Available Not Available Not Available hydroxyzi ne HCl 25 mg tablet take 1 to 2 tablets (25 mg) by oral route 3 times per day as needed for nausea,h eadaches ,insomni a, anxiety or pain 12/09 completed hydrOXYz ine HCL 25 mg oral tablet RxNorm: 242513 Allow Substitu tion: True Refill Denied: No Edited by: Talha Butler) on 06/21/20 Stopped by: Sherry( Talha Pleitez) on Not Available Not Available Not Available levofloxa gertrude 500 mg tablet 07/02 completed Not Available Not Available Not Available methylpre dnisolone 4 mg tablets in a dose pack TAKE DIRECTED 07/12 completed Not Available Not Available Not Available cefdinir 300 mg capsule TAKE 1 CAPSULE BY MOUTH EVERY 12 HOURS FOR 10 DAYS 08/21 completed Not Available Not Available Not Available progester one micronize d 100 mg capsule TAKE 1 CAPSULE BY MOUTH EVERY DAY AT BEDTIME active Not Available Not Available No t Available buspirone 15 mg tablet take 1 tablet (15 mg) by oral route 2 times per day active Not Available Not Available No t Available Daily Iron 325 mg (65 mg iron) tablet 02/10 completed iron suppleme nt Allow Substitu tion: True Refill Denied: No Refill DateOccu rred: 08/30/20 14 Edited by: Rosalee Edward ) on 02/11/20 Stopped by: Rosalee Edward ) on 02/11/20 Not Available Not Available Not Available Lexapro 20 mg tablet Take 2 tablet(s ) by mouth daily 01/06 completed Lexapro 20mg Tablet RxNorm: 517885 Allow Substitu tion: True Refill Denied: No For Problem: Anxiety Not Available Not Available Not Available Premarin 0.625 mg/gram vaginal cream Insert 1 gm in vagina at bedtime twice weekly 04/26 completed Premarin 0.625mg/ 1gm Vaginal Cream RxNorm: 952957 Allow Substitu tion: True Refill Denied: No For Problem: Menopaus e Not Available Not Available Not Available Lenore-D 12 Hour 2017 active Lenore- D 24 Hour Allow Substitu tion: True Refill Denied: No Refill DateOccu rred: 01/24/20 18 Edited by: Janell Novakh) on 02/11/20 20 Stopped by: zaki(Gerber huffman, Janell Nadira) on Not Available Not Available Not Available Singulair 07/12 completed Singallan r RxNorm: 509697 Allow Substitu tion: True Refill Denied: No Refill DateOccu rred: 02/08/20 16 Edited by: zaki(Gerber huffman Janell Nadira) on 02/11/20 20 Stopped by: zaki(Gerber huffman, Janell Nadira) on Not Available Not Available Not Available Paxil Take 1 tablet(s ) by mouth daily 01/29 completed Paxil 20mg Tablet RxNorm: 250617 Allow Substitu tion: True Refill Denied: No Not Available Not Available Not Available ginkgo biloba 08/21 completed Ginkgo biloba Allow Substitu tion: True Refill Denied: No Refill DateOccu rred: 02/08/20 16 Edited by: zaki(Gerber huffman, Janell Ballh) on 02/11/20 20 Stopped by: zaki(Gerber huffman Janell Nadira) on Not Available Not Available Not Available Prometriu m Take 1 capsule( s) by mouth daily 01/06 completed Prometri um 100mg Capsules RxNorm: 211038 Allow Substitu tion: True Refill Denied: No Not Available Not Available Not Available Vivelle-D ot Apply 1 patch(es ) to lower abdomen 2 times weekly 01/06 completed Vivelle- Dot 0.075mg Transder mal Patch RxNorm: 5601837 Allow Substitu tion: True Refill Denied: No Not Available Not Available Not Available Lexapro Take 2 tablet(s ) by mouth daily 10/02 completed Lexapro 20mg Tablet RxNorm: 687600 Allow Substitu tion: True Refill Denied: No Not Available Not Available Not Available Multivita mins 2012 active Multivit amins Allow Substitu tion: True Refill Denied: No Refill DateOccu rred: 08/27/20 13 Edited by: Janell Novak) on 02/11/20 20 Stopped by: Janell Novak) on Not Available Not Available Not Available aripipraz ole 2 mg tablet take 1 tablet (2 mg) by oral route once daily 07/12 completed Not Available Not Available Not Available ProAir HFA 07/12 completed ProAir HFA Allow Substitu tion: True Refill Denied: No Refill DateOccu rred: 01/07/20 17 Edited by: Janell Novak) on 02/11/20 20 Stopped by: Janell Novak) on Not Available Not Available Not Available Symbicort 80 mcg-4.5 mcg/actua tion HFA aerosol inhaler INHALE 2 PUFFS BY MOUTH TWICE DAILY active Not Available Not Available No t Available azelastin e 205.5 mcg (0.15 %) nasal spray USE 2 SPRAYS IN EACH NOSTRIL TWICE DAILY active Not Available Not Available No t Available Dulera 01/06 completed Dulera 100mcg/5 mcg Oral Inhaler RxNorm: 7635580 Allow Substitu tion: True Refill Denied: No Refill DateOccu rred: 02/08/20 16 Not Available Not Available Not Available Lo Loestrin Fe 1 mg-10 mcg (24)/10 mcg (2) tablet 1 po daily 08/30 completed Lo Loestrin Fe Biphasic Tablet Allow Substitu tion: True Refill Denied: No For Problem: Menometr orrhagia Not Available Not Available Not Available cefixime 400 mg capsule TAKE 1 CAPSULE BY MOUTH EVERY DAY FOR 7 DAYS 07/12 completed Not Available Not Available Not Available Flonase Allergy Relief 2016 active Flonase Allergy Relief Allow Substitu tion: True Refill Denied: No Refill DateOccu rred: 01/07/20 17 Edited by: Janell Novak) on 02/11/20 20 Stopped by: Janell Novak) on Not Available Not Available Not Available Liquid C 07/12 completed Liquid C RxNorm: 1151 Allow Substitu tion: True Refill Denied: No Refill DateOccu rred: 02/08/20 16 Edited by: zaki(Janell Garcia) on 02/11/20 20 Stopped by: zaki(Janell Garcia) on Not Available Not Available Not Available Vitals Date Recorded Body weight Body mass index (BMI) Body height Systolic And Diastolic Provider Name and Address Organization Details Last Updated DateTime 09/23/2024 87085.96 g 26.1 kg/m2 167.64 cm 118/80 mm[Hg] Dorothy Paige [facility] IV 09/23/2024 13:11:23 Date Recorded Body height Provider Name an d Address Organization Details Last Updated DateTime 12/09/2024 167.64 cm DeniseFransisca Rigoberto [email or web address] 12/09/2024 11:38:43 Date Recorded Body mass index (BMI) Body weight Systolic And Diastolic Provider Name and Address Organization Details Last Updated DateTime 12/09/2024 24 kg/m2 48244.26 g 92/70 mm[Hg] Eileenjac David [place] [facility] 12/09/2024 11:52:15 Date Recorded Body height Provider Name an d Address Organization Details Last Updated DateTime 07/02/2022 167.64 cm Lashay [facility] IV 07/02/2022 14:47:24 Date Recorded Body height Body mass index (BMI) Body weight Body temperature Systolic And Diastolic Provider Name and Address Organization Details Last Updated DateTime 07/12/2021 167.64 cm 26.6 kg/m2 07569.7 4 g 97.5 [degF] 112/70 mm[Hg] Alaina Dedrasylvia [place] [facility] 13:52:58 Date Recorded Body height Body mass index (BMI) Body weight Systolic And Diastolic Provider Name and Address Organization Details Last Updated DateTime 08/21/2023 167.64 cm 25.8 kg/m2 49981.78 g 126/78 mm[Hg] Lashaygisel Paige [place] [facility] 08/21/2023 14:29:05 Social History Question Answer Notes LastModified by Organizat ion Details LastModified Time Tobacco Smoking Status Never Smoker Lashay Paige null, [facility] 07/12/2021 09:27:49 If You Are , What Was Your Level Of Alcohol Consumption Prior To ? None [email or web address] Information not available 09/23/2024 How Many Years Have You Consumed Alcohol? 30 [email or web address] Information not available 09/23/2024 Are You Blind Or Do You Have Difficulty Seeing? No [email or web address] Information not available 09/23/2024 Are You Deaf Or Do You Have Serious Difficulty Hearing? No [email or web address] Information not available 09/23/2024 What Type Of Diet Are You Following? REGULAR [email or web address] Information not available 07/02/2022 How Many Children Do You Have? 0 Information not available 06/29/2022 Are There Any Occupational Health Risks Where You Work? No [email or web address] Information not available 09/23/2024 What Is Your Relationship Status? Single [email or web address] Information not available 07/02/2022 Are You Sexually Active? No [email or web address] Information not available 07/02/2022 Sex: Female Functional Status Question Answer Note LastModified by Organizat ion Details LastModified Time How many times per week do you consume alcohol? 1-2 times per week Information not available 06/29/2022 Do you use any illicit or recreational drugs? No [email or web address] Information not available 07/12/2021 Do you or have you ever used any other forms of tobacco or nicotine? No [email or web address] Information not available 07/12/2021 What is your level of alcohol consumption? Occasional [email or web address] Information not available 07/12/2021 Are you currently employed? Yes [email or web address] Information not available 09/23/2024 Do you or have you ever used e-cigarettes or vape? Never used electronic cigarettes [email or web address] Information not available 07/02/2022 What is your exercise level? Occasional [email or web address] Information not available 07/02/2022 Mental Status None recorded. Family History Relationship Description Onset Age of this Age Resolved Age Notes LastModified by Organization Details LastModified Time Mother Irritable bowel syndrome [email or web address] Not available 08/21 14:20:02 Mother Hypercholest erolemia Not available 08/21 14:20:02 Mother Malignant neoplastic disease [email or web address] Not available 08/21 14:20:02 Mother Hypothyroidi sm [email or web address] Not available 08/21 14:20:02 Mother Uterine leiomyoma [email or web address] Not available 08/21 14:20:02 Unspecified Relation Malignant neoplasm of breast [email or web address] Not available 08/21 14:20:02 Unspecified Relation Hypothyroidi sm [email or web address] Not available 08/21 14:20:02 Maternal Grandmother Irritable bowel syndrome Not available 08/21 14:20:02 Maternal Grandmother Hypercholest erolemia [email or web address] Not available 08/21 14:20:02 Maternal Grandmother Hypertensive disorder [email or web address] Not available 08/21 14:20:02 Maternal Grandmother Heart disease [email or web address] Not available 08/21 14:20:02 Maternal Grandmother Uterine leiomyoma [email or web address] Not available 08/21 14:20:02 Brother Hypercholest erolemia [place] [address] Not available 08/21 14:20:02 Maternal Grandfather Irritable bowel syndrome [email or web address] Not available 08/21 14:20:02 Maternal Grandfather Hypercholest erolemia [email or web address] Not available 08/21 14:20:02 Maternal Grandfather Myocardial infarction [place] [address] Not available 08/02 14:20:02 Maternal Grandfather Hypertensive disorder [place] [address] Not available 08/21 14:20:02 Maternal Grandfather Heart disease [place] [address] Not available 08/21 14:20:02 Medical History Condition Response Anemia Y Anxiety Disorder Y Fibroids Y High Cholesterol Y Gynecological History Statement/Question Response Flow Moderate Date of last HPV 09/23/2024 Date of LMP 09/01/2010 Duration of Flow (days) N/a Most Recent Mammogram 03/03/2024 Current Control Method Menopause Age at Menarche 16 If Post Menopausal, Age at Menopause 41 Date of Last Colonoscopy Most Recent Bone Density Frequency of Cycle (Q days) N/a Date of Last Pap Smear 09/23/2024 03/07/2022 Obstetrics History GPAL:G 0 P 0 0 0 0 Type Value Multiple Births 0 Full Term 0 Induced 0 Spontaneous 0 Premature 0 Living 0 Ectopics 0 Total 0 Past Encounters Encounter ID Performer Location Encounter Start Date Encounter Closed Date Diagnosis/Indication Diagnosis SNOMED-CT Code Diagnosis ICD10 Code Diagnosis IMO Codes Diagnosis Note [id number] Janell Morrell MD [address] [address] 07/12/2021 13:20:03 07/16/2021 14:09:24 Anxiety 86037674 F41.9 Instructed patient on normal labs.She is going to Start EffexorFol low up with counselorS trongly suggest Psychiatry Labs are normal [id number] Janell Morrell MD [address] [address] 07/02/2022 14:36:46 07/08/2022 15:05:28 Gynecologic examination 36330653 Z01.419 Screening for malignant neoplasm of breast 186757336 Z12.39 Uterine leiomyoma 514796 05 D25.9 Discussed hysterecto my due to recurrent PMB. Patient will consider. Postmenopa usal bleeding 33001093 N95.0 Menopausal symptom 14295 002 N95.1 [id number] Janell Morrell MD [address] [address] 08/21/2023 14:09:13 08/21/2023 16:01:36 Gynecologic examination 81620581 Z01.419 Screening for malignant neoplasm of breast 924228568 Z12.39 after 10/31/2023 Uterine leiomyoma 573303 05 D25.9 Discussed hysterecto my due to recurrent PMB. Patient will consider. 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 Bleeding has stopped as of yesterday- Considerin g hysterecto my, but not until 2025.-RTC PRN or next WWE The patient was initially evaluated by GABRIEL Carmichael, who completed the history examinatio n, and preliminar y assessment . I, Janell Morrell MD, entered the room to review and discuss the care plan with the patient. After reviewing the specific findings and documentat ion provided by Sally, I confirmed the diagnosis and care plan, addressing any additional concerns or questions raised by the patient. The final plan of care was developed collaborfrandy steve and has been documented lesvia y. 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 6937 Endometrial polyp 048536 2552 N84.0 87619 Health Concerns Section Related Observation LastModified by Organization Detai ls LastModified Time None Recorded Concern Status LastModified by Organization Details LastModified Time None Recorded Advance Directives Directive None Recorded Payers Insurance Date Sequence Insurance Name Policy Number Policy Peoples Covered Member ID Peoples Member ID Guarantor Name 08/21/2023 1 [place] [id number] Cyndee Chirinos Storm [id number] Cyndee Chirinos Storm 03/30/2025 PAYMENT PLAN Cyndeelise Chirinos Storm 08/18/2023 1 [employer] [id number] Cyndee Chirinos Storm [id number] Cyndee Chirinos Storm 11/10/2022 PAYMENT PLAN Cyndee Chirinos Storm 12/13/2024 1 [employer] (POS II) [id number] Cyndee Inman [id number] Cyndee Chirinos Storm 01/20/2025 PAYMENT PLAN Cyndee Chirinos Storm 03/30/2025 PAYMENT PLAN Cyndee Inman Notes Date Note Type Note Provider Name and Address Organization Details Recorded Time 1 text/html Menopausal SymptomsReported by PatientHPIFor quality, patient reportshot flashes 4-8 times/day,sleep issues,mood changes, andaffects quality of life. For onset/timing, patient reports5-10 years. For severity, patient reportsmoderate.Patient still taking Paxil. Hasn't transitioned to Effexor. Also, has left message for counselor who hasn't returned call yet. Janell Morrell MD [address] [place] [address], [place], [address], [employer] IV 07/12/2021 16:51:09 2 text/html Annual GYNReported by PatientGenitourinary symptomsFor urinary symptoms, patient reportsno hematuriaandno incontinence. For vulva, patient reportsno genital lesion. For vagina, patient reportsnormal vaginal discharge. For menstrual cycle, (menopause - c/o spotting off and on since 05/2022).Breast symptomsFor breast, patient reportsno breast pain,no breast lump, andno nipple discharge.ContraceptionFo r current contraception, patient reportsnot sexually active.Endocrine symptomsFor menopausal symptoms, patient reportsno menopausal symptoms.Psychological symptomsFor psychological symptoms, patient reportsno depressionandno anxiety.Patient reports abnormal spotting over the last 2 months intermittently. She has a known didelphys uterus with fibroids. She is also taking HRT. Cyndee here for annual well women visit Janell Morrell MD [facility], [place], [address], [employer] IV 07/04/2022 10:50:08 3 text/html Annual [employer] Post-MenopausalReported by PatientGenitourinary symptomsFor vaginal bleeding, patient reportspost menopausal bleeding(c/o 2x where she has spotting). For urinary symptoms, patient reportsno hematuria,no incontinence,no nocturia, andno urinary frequency. For vulva, patient reportsno genital lesion. For vagina, patient reportsnormal vaginal discharge.Breast symptomsFor breast, patient reportsno breast lump,no nipple discharge, andno breast pain.Psychological symptomsFor sexual complaints, patient reportsno sexual complaints. For psychological symptoms, patient reportsno depressionandno anxiety.Preventative measuresFor preventive measures, patient reportsencourage self breast examination,encourage regular exercise, andmammogram performed within the past year. Cyndee 53 y/o here for annual well women visit, She is post menopause, Last pap 03/13/2021, Last WWE 07/02/22, Last mammogram 10/30/2022 Janell Morrell MD [address] [place] [address], [place], [address], [employer] IV 08/21/2023 14:56:25 5 text/html Annual GYNReported by PatientHistoryFor history, patient reportsno gynecologic complaintsandno change in interval history.Genitourinary symptomsFor menstrual cycle, patient reportsunexplained vaginal bleeding (intermittent)andperimeno pausal. For urinary symptoms, patient reportsno hematuriaandno incontinence. For vulva, patient reportsno genital lesion. For vagina, patient reportsnormal vaginal discharge.Breast symptomsFor breast, patient reportsno breast pain,no breast lump, andno nipple discharge.ContraceptionFo r current contraception, patient reportsmonogamous relationship.Endocrine symptomsFor menopausal symptoms, patient reportshot flashes.Psychological symptomsFor psychological symptoms, patient reportsno depression,no anxiety, andno pmdd.Preventative measuresFor preventive measures, patient reportsencourage self breast examination,encourage regular exercise, andencourage regular mammograms starting age 40. Janell Morrell MD [facility], [place], [address], [employer] IV 09/28/2024 10:15:01 5 text/html Post-OpReported by PatientHPIFor onset/timing, patient reportsdate of surgery: (11-25-24). For quality, patient reportsprocedure: (dilation and curettage/hysteroscopy). For context, (post menopausal bleeding).ROS as noted in the HPI Cyndee is a 54 yr old female. Pt is here for D&C w/ hysteroscopy post op. Pt says she stopped spotting 4-9. She has occasional cramps on the right lower side, but they are intermittent. Pt has no concerns. Janell Morrell MD [address] [facility], [place], [address], [facility] IV 12/12/2024 08:17:06 OBGyn Episode No OBEpisode recorded.
== END 2025-07-12 15:41 | disposition home or self-care (01) ==
PROVIDERS: PCP Internal Medicine; Visit Provider Obstetrics & Gynecology
DX: Z12.31 Encounter for screening mammogram for malignant neoplasm of breast (principal); R92.8 Other abnormal and inconclusive findings on diagnostic imaging of breast
CPT/HCPCS: 77063; 77067